=== PATIENT | male | born 1945 | race Caucasian/White ===

== ENCOUNTER 2016-09-09 05:38 | Inpatient (IN) ==
[2016-09-09] MEDS ORDERED: Levofloxacin 750 MG/150 ML 750 MG/150 ML BAG IVPB ONE (05:43)
[2016-09-09] MEDS ORDERED: Ipratropium/Albuterol Neb 3 ML IH ONE ×2 (05:45→09:39)
--- NOTE | 2016-09-09 05:47 | Emergency Department Note ---
Disposition Clinical Impression: CKD (chronic kidney disease) stage 3, GFR 30-59 ml/min, Acute exacerbation of chronic obstructive airways disease, Ischemic cardiomyopathy, Elevated troponin I level Disposition: Admitted As Inpatient Condition: Fair [facility] Care Provider[facility] - Forms: ED Satisfaction Letter SOB HPI - General Chief Complaint: ED Shortness of Breath/Dyspnea Stated Complaint: Dyspnea, diaphoretic onset this AM Time Seen by Provider: 09/09/16 05:41 Source: patient, EMS Mode of arrival: EMS Limitations: physical limitation Nursing Notes Reviewed: Yes Vital Signs Reviewed: Yes - History of Present Illness Patient was reportedly admitted to [facility] for an episode of difficulty breathing from August 28 until September 07. States he is doing relatively well until he had severe increased shortness of breath about 3 hours prior to arrival. He did do a home aerosol but he continued with severe dyspnea prompting a call to 911. On arrival they report he was with a saturation of about 70% on supplemental O2, diaphoretic and in a tripod position. They did administer labetalol, aerosol and transported expeditiously to the emergency department. On arrival here he does confirm the history of recent onset shortness of breath. Reports a cough without sputum production. He denies any chest pain or palpitations. He denies fevers, chills, abdominal or back pain. He denies any increase in his lower extremity swelling or edema. He states he has been taking his medications regularly. He is oxygen saturations on arrival were in the high 80s and he is speaking in 3-4 word sentences. Shortly after arrival he has refused BiPAP and has shown significant improvement just being semireclined on nasal cannula. His oxygen saturations quickly normalized to 97-98%. Pt Subjective Complaint: shortness of breath Onset (ago): hour(s) (3) Context: recent illness Severity: severe Consistency/Duration: gradually worsening Improves with: oxygen, bronchodilators Worsens with: lying flat, coughing Known history of: COPD, congestive heart failure, diabetes Associated symptoms: Reports: cough, wheezing, orthopnea, diaphoresis. Denies: chest pain, pain with inspiration, fever, sputum production, lower extremity pain, polyuria, polydipsia, parasthesias, palpitations, hemoptysis, nausea/ vomiting, syncope, abdominal pain, rash Treatment prior to arrival: oxygen, bronchodilator Cough present: Yes Cough Description: Voluntary, Non-Productive, Hacking Cough Frequency: Intermittent Sputum production: No Sputum Amount: None - Related Data Home oxygen amount: 3 liters Home Medications Medication Instructions Recorded Confirmed Albuterol Sulfate [Albuterol 1 - 2 puff IH Q4HR PRN #0 04/12/15 08/29/16 Inhaler] Aspirin [Lo-Dose Aspirin EC] 81 mg PO DAILY #0 04/12/15 08/29/16 BuPROPion [Wellbutrin] 100 mg PO BID #0 04/12/15 08/29/16 Cholecalciferol (D-3) [Vitamin D] 2,000 unit PO DAILY #0 04/12/15 08/29/16 Isosorbide MONOnitrate (24 HR) 45 mg PO DAILY #0 04/12/15 08/28/16 [Imdur] Lisinopril [Zestril] 5 mg PO DAILY #0 04/12/15 08/28/16 Omeprazole [PriLOSEC] 10 mg PO DAILY #0 04/12/15 08/28/16 Simethicone [Gas-X] 80 mg PO TID PRN #0 04/12/15 08/28/16 Albuterol Neb [Proventil Neb] 2.5 mg IH Q6H 06/17/16 08/29/16 Atorvastatin [Lipitor] 40 mg PO DAILY 06/17/16 08/29/16 Budesonide/Formoterol 160/4.5 2 puff IH BID 06/17/16 08/29/16 [Symbicort 160/4.5] Docusate [Colace] 100 mg PO BID 06/17/16 08/29/16 HYDROcodone/Acet 5/325 mg [[place] 1 tab PO Q8H PRN 06/17/16 08/28/16 5-325 mg] Insulin Glargine,Hum.rec.anlog 52 unit SQ HS 06/17/16 08/28/16 [Lantus Solostar] Loratadine [Allergy Relief] 10 mg PO DAILY 06/17/16 08/28/16 Metoprolol XL (24 HR) Succ [Toprol 25 mg PO DAILY 06/17/16 08/28/16 Xl] Potassium Chloride [Klor-Con 10 meq PO DAILY 06/17/16 08/28/16 Sprinkle] Roflumilast [Daliresp] 500 mcg PO DAILY 06/17/16 08/28/16 Tiotropium [Spiriva] 18 mcg IH DAILY 06/17/16 08/28/16 Insulin ASPART [NovoLOG] 22 unit SQ QAM 08/28/16 08/28/16 PredniSONE [Prednisone] 10 mg PO DAILY 09/09/16 09/09/16 Torsemide [Demadex] 20 mg PO DAILY 09/09/16 09/09/16 Warfarin [Coumadin] 4 mg PO DAILY 09/09/16 09/09/16 Previous Rx's Medication Instructions Recorded Furosemide [Lasix] 40 mg PO BID #120 tab 03/23/16 GuaiFENesin ER [Mucinex] 1,200 mg PO BID #14 tab 06/22/16 Allergies Allergy/AdvReac Type Severity Reaction Status Date / Time flunisolide [From Aerobid] Allergy unkown Verified 12/05/15 12:41 Penicillins Allergy unkown Verified 12/05/15 12:41 chlordiazepoxide AdvReac unkown Verified 12/05/15 12:41 [From Librium] diazepam [From Valium] AdvReac unknown Verified 12/05/15 12:41 simvastatin AdvReac unkown Verified 12/05/15 12:41 All systems ED: reviewed and negative except as stated. Past Medical History - Past Medical History Attestation: Yes The following information was validated with the patient. Source: patient, old records reviewed, nursing notes reviewed Medical history: Reports: aortic aneurysm, arthritis, asthma, atrial fibrillation (Anticoagulation), cardiomyopathy (Fraction 25%), CHF, COPD, coronary artery disease, diabetes, GERD, hyperlipidemia, hypertension, myocardial infarction, peripheral artery disease, renal disease, other (Anemia) Surgical history: Reports: angioplasty/stent (PTCA and cardiac stent 3 in 2014) , carotid endarterectomy, pacemaker/AICD, other Psychiatric history: Reports: PTSD - Social History Smoking Status: Former smoker Smokeless Tobacco Status: No Alcohol use: Reports: none Drug use: Reports: none, other Physical Exam - General Limitations: physical limitation, age General appearance: alert, in distress - Head Head exam: atraumatic, normocephalic, normal inspection - Eye Eye exam: Present: normal appearance, PERRL, EOMI. Absent: scleral icterus, conjunctival injection - ENT ENT exam: normal exam, normal oropharynx, mucous membranes moist - Neck Neck exam: Present: normal inspection, full ROM, trachea midline. Absent: tenderness, lymphadenopathy - Chest Chest inspection: Present: normal inspection, symmetric chest wall rise - Respiratory Respiratory exam: Present: respiratory distress, wheezes, accessory muscle use, prolonged expiratory phase - Cardiovascular Cardiovascular exam: Present: regular rate, normal rhythm, normal heart sounds, JVD. Absent: tachycardia - Abdominal Exam Abdominal exam: Present: soft, Non-Tender, normal bowel sounds. Absent: tenderness, distention, guarding, rebound, rigidity - Extremities Exam Extremities exam: Present: normal inspection, full ROM, normal capillary refill , pedal edema (1+). Absent: tenderness, calf tenderness - Expanded Lower Extremity Exam Neurovascular/Tendon exam: Present: normal capillary refill. Absent: motor deficit, sensory deficit, tendon deficit Gait: not tested/not observed - Back Exam Back exam: Present: normal inspection, full ROM. Absent: tenderness - Neurological Exam Neurological exam: Present: alert, oriented X3. Absent: motor sensory deficit - Psychiatric Psychiatric exam: Present: agitated, anxious - Skin Skin exam: Present: intact, diaphoresis, pallor. Absent: rash, cyanosis Course Course Narrative: 0640: All lab, EKG and x-ray findings were discussed with the patient and his son. The patient is feeling much better and states that he is having similar episodes of severe shortness of breath and needing to urinate when he is awakening in the mornings in the hospital. He is not sure there will be any particular benefit being in the hospital but does wish for me to talk to the [facility] to see if he might be able to be seen there and for them to see if they can further adjust his medicines. 0645: [facility] advises that did not have a monitor. Patient has no preference between the [facility] in [place] and the [facility] in [place]. We have contacted to the [facility] and are awaiting a callback from the wharfinger chief. The transfer center has noted that they in general do not accept patients was elevated troponin on the weekends due to the catheter lab was not available. They were advised that his troponin has been chronically elevated and it has been recommended by [facility] and [facility] that he does not need further cardiac testing or intervention. 0710: Patient has been declined by the [facility] by Dr. Benitez in [place]. She recommends that he be evaluated at the closest appropriate facility with cardiac care available. They states that falsely not to accept patients on the weekends with elevated troponin due to not having catheterization facilities available on the weekend. We will contact to [facility] for potential transfer. 0735: Dr. Stephens from [facility] has advised that it appears that all of his problems are related to his COPD and that they would not provide any intervention that cannot be provided this facility. He has reviewed the record and has declined accepting him to [facility]. I will contact our hospitalist, Dr. López, to see if he is agreeable to observation at this facility. 0750: Dr. López has accepted this patient in observation and we are coordinating orders to this facility. Vital Signs Temperature 98.4 F 09/09/16 05:41 Pulse Rate 82 09/09/16 05:41 Respiratory Rate 24 09/09/16 05:41 Blood Pressure 174/111 09/09/16 05:41 O2 Sat by Pulse Oximetry 95 09/09/16 05:41 Temperature 98.4 F 09/09/16 05:44 Pulse Rate 82 09/09/16 05:44 Respiratory Rate 24 09/09/16 05:44 Blood Pressure 174/111 09/09/16 05:44 O2 Sat by Pulse Oximetry 95 09/09/16 05:44 Oxygen Delivery Oxygen Delivery Nasal Cannula Shortness of Breath/Dyspnea - Differential Diagnosis Likely: acute exacerbation of chronic obstructive airways disease, congestive heart failure, pneumonia, asthma with exacerbation - Medical Records Medical records reviewed: Yes I reviewed the patient's medical records. Patient has had several hospital admissions for exacerbation of COPD as well some CHF with ischemic cardiomyopathy. It appears he has a long history of refusing to BiPAP. He does tend to have an elevated troponin on multiple investigations. - Lab Data Lab results reviewed: Yes I reviewed the patient's lab results. Result diagrams: 09/09/16 05:58 09/09/16 05:58 Lab Results 09/09/16 09/09/16 09/09/16 Range/Units 05:42 05:50 05:58 WBC 15.0 H (4.3-11.1) K/mcL RBC 3.47 L (4.19-5.50) M/mcL Hgb 9.2 L (12.9-16.9) g/dL Hct 30.4 L (37.5-50.1) % MCV 87.6 (83.0-100.0) fL MCH 26.5 L (28.0-33.3) pg MCHC 30.3 L (31.6-35.5) g/dL RDW 15.6 H (11.5-14.5) % Plt Count 364 (140-400) K/mcL MPV 9.7 (9.4-12.4) fL Immature Gran % 1.4 (0-4) % Seg Neutrophils % 76.3 % Lymphocytes % 11.9 % Monocytes % 7.5 % Eosinophils % 2.8 % Basophils % 0.1 % Neutrophils # 11.5 H (1.6-8.9) K/mcL Lymphocytes # 1.8 (0.6-4.6) K/mcL Monocytes # 1.1 (0.0-1.3) K/mcL Eosinophils # 0.4 (0.0-0.6) K/mcL Basophils # 0.0 (0.0-0.2) K/mcL ABG pH 7.36 (7.32-7.45) pH Units ABG pCO2 65 H (35-45) mmHg ABG pO2 99 (85-104) mmHg ABG HCO3 36.8 H (21-27) mEQ/L ABG Total CO2 38.8 H (20-26) mEq/L ABG O2 Saturation 97 (95-98) % ABG Base Excess 8.9 H (-2.0 to 3.0) mEq/L Sodium (136-145) mEq/L Potassium (3.5-4.5) mEq/L Chloride (98-109) mEq/L Carbon Dioxide (19-29) mEq/L BUN (8-26) mg/dL Creatinine (0.72-1.25) mg/dL Est GFR ( Amer) (> 60) Est GFR (Non-Af Amer) (> 60) BUN/Creatinine Ratio (6-26) Glucose (70-99) mg/dL POC Glucose 282 H (58-89) Calculated Osmolality (280-300) Calcium (8.6-10.8) mg/dL Troponin I (0-0.03) ng/mL B-Natriuretic Peptide (0-100) pg/mL 09/09/16 09/09/16 09/09/16 Range/Units 05:58 05:58 05:58 WBC (4.3-11.1) K/mcL RBC (4.19-5.50) M/mcL Hgb (12.9-16.9) g/dL Hct (37.5-50.1) % MCV (83.0-100.0) fL MCH (28.0-33.3) pg MCHC (31.6-35.5) g/dL RDW (11.5-14.5) % Plt Count (140-400) K/mcL MPV (9.4-12.4) fL Immature Gran % (0-4) % Seg Neutrophils % % Lymphocytes % % Monocytes % % Eosinophils % % Basophils % % Neutrophils # (1.6-8.9) K/mcL Lymphocytes # (0.6-4.6) K/mcL Monocytes # (0.0-1.3) K/mcL Eosinophils # (0.0-0.6) K/mcL Basophils # (0.0-0.2) K/mcL ABG pH (7.32-7.45) pH Units ABG pCO2 (35-45) mmHg ABG pO2 (85-104) mmHg ABG HCO3 (21-27) mEQ/L ABG Total CO2 (20-26) mEq/L ABG O2 Saturation (95-98) % ABG Base Excess (-2.0 to 3.0) mEq/L Sodium 145 (136-145) mEq/L Potassium 4.2 (3.5-4.5) mEq/L Chloride 99 (98-109) mEq/L Carbon Dioxide 34 H (19-29) mEq/L BUN 36 H (8-26) mg/dL Creatinine 1.39 H (0.72-1.25) mg/dL Est GFR ( Amer) > 60 (> 60) Est GFR (Non-Af Amer) 51 L (> 60) BUN/Creatinine Ratio 26 (6-26) Glucose 271 H (70-99) mg/dL POC Glucose (58-89) Calculated Osmolality 318 H (280-300) Calcium 8.7 (8.6-10.8) mg/dL Troponin I 0.10 H* (0-0.03) ng/mL B-Natriuretic Peptide 648 H (0-100) pg/mL - Radiology Data Radiology results reviewed: Yes I reviewed the patient's radiology results. Single view chest x-ray is performed. This demonstrates hyperexpansion consistent with COPD as well as a mildly increased interstitial markings. There appears to be some mild edema but no evidence for acute infiltrate, effusion or pneumothorax. Cardiac silhouette is borderline enlarged but unchanged from previous. This is on my interpretation. Impressions Chest X-Ray 09/09/16 05:43 IMPRESSION: 1. No significant change. D/ / Micheal Gallegos MD / Micheal Gallegos MD Interpreting Provider: Micheal Gallegos MD - EKG Data EKG attestation: Yes I reviewed and interpreted this EKG. Rate: Reports: normal (80) Rhythm: Reports: other (Ventricularly paced) Interpretation: Reports: no acute changes, other (Ventricularly paced rhythm with significant baseline artifact.) Critical Care Time Critical Care Time: Yes Total Critical Care Time: 45 Attestation: As this patient did present with signs and symptoms of potential life- threatening illness requiring my urgent intervention, total critical care time in this patient's care has been 45 minutes, not withstanding separately reportable procedures.
[2016-09-09 06:07] LABS: Basophils % 0.1 %; Eosinophils # 0.4 K/mcL (0.0-0.6); Eosinophils % 2.8 %; Hematocrit 30.4 % (37.5-50.1); Hemoglobin 9.2 g/dL (12.9-16.9); Immature Granulocytes % 1.4 % (0-4); Lymphocytes # 1.8 K/mcL (0.6-4.6); Lymphocytes % 11.9 %; Mean Corpuscular HGB Conc 30.3 g/dL (31.6-35.5); Mean Corpuscular Hemoglobin 26.5 pg (28.0-33.3); Mean Corpuscular Volume 87.6 fL (83.0-100.0); Mean Platelet Volume 9.7 fL (9.4-12.4); Monocytes # 1.1 K/mcL (0.0-1.3); Monocytes % 7.5 %; Neutrophils # 11.5 K/mcL (1.6-8.9); Platelet Count 364 K/mcL (140-400); Red Blood Count 3.47 M/mcL (4.19-5.50); Red Cell Distribution Width 15.6 % (11.5-14.5); Segmented Neutrophils % 76.3 %
[2016-09-09 06:11] LABS: ABG Base Excess 8.9 mEq/L (-2.0 to 3.0); ABG HCO3 36.8 mEQ/L (21-27); ABG Oxygen Saturation 97 % (95-98); ABG PCO2 65 mmHg (35-45); ABG PH 7.36 pH Units (7.32-7.45); ABG PO2 99 mmHg (85-104); ABG TCO2 38.8 mEq/L (20-26)
[2016-09-09 06:23] LABS: BUN/Creatinine Ratio 26 (6-26); Blood Urea Nitrogen 36 mg/dL (8-26); Calcium 8.7 mg/dL (8.6-10.8); Carbon Dioxide 34 mEq/L (19-29); Chloride 99 mEq/L (98-109); Glucose 271 mg/dL (70-99); Osmolality,Calculated 318 (280-300); Potassium 4.2 mEq/L (3.5-4.5); Sodium 145 mEq/L (136-145); eGFR For African Americans > 60 (> 60); eGFR For Non-African Americans 51 (> 60)
[2016-09-09 06:32] LABS: INR 1.4; Prothrombin Time 15.3 Seconds (9.4-12.1)
[2016-09-09 06:37] LABS: Activated Partial Thrombo Time 21.8 Seconds (26.0-36.0)
[2016-09-09] MEDS ORDERED: PredniSONE 20 MG TABLET PO SCH (10:11)
[2016-09-09] MEDS ORDERED: *HR* Dextrose 50 % in Water (Syg) 50 ML SYRINGE IVP PRN (10:11)
[2016-09-09] MEDS ORDERED: Dextrose Gel 15 GM PO PRN ×2 (10:11)
[2016-09-09] MEDS ORDERED: Torsemide 20 MG TABLET PO SCH (10:11)
[2016-09-09] MEDS ORDERED: Ipratropium/Albuterol Neb 3 ML IH SCH (10:11)
[2016-09-09] MEDS ORDERED: Ondansetron 4 MG/2 ML VIAL IVP PRN (10:11)
[2016-09-09] MEDS ORDERED: Acetaminophen 325 MG TABLET PO PRN (10:11)
[2016-09-09] MEDS ORDERED: Naloxone 0.4 MG/ML INJ IVP PRN (10:11)
[2016-09-09] MEDS ORDERED: D5% in Water 1,000 ML IV PRN (10:11)
[2016-09-09] MEDS: Insulin LISPRO 300 UNITS/3 ML VIAL SQ SCH ×2 (12:09→16:03)
--- NOTE | 2016-09-09 12:45 | Internal Med History&Physical ---
Date of Encounter: 09/09/16 Time of Encounter: 12:15 Assessment and Plan (1) Dyspnea Current visit: Yes Status: Acute Suspect due to heart failure with possible contribution from exacerbation of COPD. I will increase his isosorbide and Demadex and discontinue prednisone. I will also start Lanoxin. Further medication adjustments will be done as needed. Qualifiers: Dyspnea type: shortness of breath Qualified Code(s): R06.02 - Shortness of breath (2) Elevated troponin I level Current visit: Yes Status: Chronic Suspect he has small vessel disease with ischemic myocardium. Will increase isosorbide and continue aspirin and Toprol. (3) CKD (chronic kidney disease) stage 3, GFR 30-59 ml/min Current visit: Yes Status: Chronic Stable. Will monitor renal indices as needed. (4) Hypertension Current visit: No Status: Acute Improved since arrival in the emergency room. Continue present regimen for now Qualifiers: Hypertension type: essential hypertension Qualified Code(s): I10 - Essential (primary) hypertension (5) Anemia Current visit: No Status: Chronic We will check anemia testing in a.m. Qualifiers: Anemia type: unspecified type Qualified Code(s): D64.9 - Anemia, unspecified (6) Atrial fibrillation Current visit: No Status: Chronic Continue Coumadin. Will increase dose to 5 mg daily since he is subtherapeutic Qualifiers: Atrial fibrillation type: chronic Qualified Code(s): I48.2 - Chronic atrial fibrillation (7) CAD (coronary artery disease) Current visit: No Status: Chronic Will increase isosorbide. Continue other medications at present doses. Qualifiers: Coronary Disease-Associated Artery/Lesion type: [place] artery [place] vs. transplanted heart: apache heart Associated angina: without angina Qualified Code(s): I25.10 - Atherosclerotic heart disease of apache coronary artery without angina pectoris (8) DM type 2 (diabetes mellitus, type 2) Current visit: No Status: Chronic We will check hemoglobin A1c in a.m. Qualifiers: Diabetes mellitus complication status: with kidney complications Diabetes mellitus complication detail: with chronic kidney disease Diabetes mellitus keno terminal operator insulin use: with keno terminal operator use Chronic kidney disease stage: stage 3 (moderate) Qualified Code(s): E11.22 - Type 2 diabetes mellitus with diabetic chronic kidney disease; N18.3 - Chronic kidney disease, stage 3 ( moderate); Z79.4 - detention (current) use of insulin Internal Medicine - H&P: HPI Chief complaint: Dyspnea and chest discomfort Admitted From: Home Plans for Post Hospital Care: Home History of present illness: Mr. Martin is a 70 year old male who came to emergency room stating he was awakened approximately 4 AM with increased dyspnea and chest pain. He took albuterol nebulizer treatment with minimal improvement. He came to emergency room and was evaluated. He was [facility] floor for ongoing care needs. He reports he was hospitalized at [facility] in [place] August 28- with dyspnea felt to be due to worsening of COPD/CHF. His medications were adjusted and he felt improved discharge but awakened this morning with recurrent dyspnea. His respiratory history is significant for having smoked from age [age] up to 3 packs per day. He has a diagnosis of COPD/emphysema and wears oxygen at home 18/03. He has had negative MICHAEL workup. He follows with a medical examiner at [facility] on a regular basis. He had chest CT July 2016 which did not show acute pathology. Past Med Surg Social Fam HX - Past Medical History Medical history: aortic aneurysm, arthritis, asthma, atrial fibrillation, cardiomyopathy, CHF, COPD, coronary artery disease, diabetes, GERD, hyperlipidemia, hypertension, myocardial infarction, peripheral artery disease, renal disease, other Psychiatric history: PTSD - Past Surgical History Surgical History: angioplasty/stent, carotid endarterectomy, pacemaker/AICD, other - Social History Smoking Status: Former smoker Smokeless Tobacco Status: No Alcohol use: none Drug use: none, other - Family History Father Living Status: Hx Family Cardiac Disorders: Yes Sister Living Status: Internal Medicine - H&P: Meds Albuterol Sulfate [Albuterol Inhaler] 1 - 2 puff IH Q4HR PRN #0 04/12/15 [ History] Aspirin [Lo-Dose Aspirin EC] 81 mg PO DAILY #0 04/12/15 [History] BuPROPion [Wellbutrin] 100 mg PO BID #0 04/12/15 [History] Cholecalciferol (D-3) [Vitamin D] 2,000 unit PO DAILY #0 04/12/15 [History] Isosorbide MONOnitrate (24 HR) [Imdur] 45 mg PO DAILY #0 04/12/15 [History] Lisinopril [Zestril] 5 mg PO DAILY #0 04/12/15 [History] Omeprazole [PriLOSEC] 10 mg PO DAILY #0 04/12/15 [History] Simethicone [Gas-X] 80 mg PO TID PRN #0 04/12/15 [History] Furosemide [Lasix] 40 mg PO BID #120 tab 03/23/16 [Rx] Albuterol Neb [Proventil Neb] 2.5 mg IH Q6H 06/17/16 [History] Atorvastatin [Lipitor] 40 mg PO DAILY 06/17/16 [History] Budesonide/Formoterol 160/4.5 [Symbicort 160/4.5] 2 puff IH BID 06/17/16 [ History] Docusate [Colace] 100 mg PO BID 06/17/16 [History] HYDROcodone/Acet 5/325 mg [[place] 5-325 mg] 1 tab PO Q8H PRN 06/17/16 [History] Insulin Glargine,Hum.rec.anlog [Lantus Solostar] 52 unit SQ HS 06/17/16 [History ] Loratadine [Allergy Relief] 10 mg PO DAILY 06/17/16 [History] Metoprolol XL (24 HR) Succ [Toprol Xl] 25 mg PO DAILY 06/17/16 [History] Potassium Chloride [Klor-Con Sprinkle] 10 meq PO DAILY 06/17/16 [History] Roflumilast [Daliresp] 500 mcg PO DAILY 06/17/16 [History] Tiotropium [Spiriva] 18 mcg IH DAILY 06/17/16 [History] GuaiFENesin ER [Mucinex] 1,200 mg PO BID #14 tab 06/22/16 [Rx] Insulin ASPART [NovoLOG] 22 unit SQ QAM 08/28/16 [History] PredniSONE [Prednisone] 10 mg PO DAILY 09/09/16 [History] Torsemide [Demadex] 20 mg PO DAILY 09/09/16 [History] Warfarin [Coumadin] 4 mg PO DAILY 09/09/16 [History] Allergies flunisolide [From Aerobid] Allergy (Verified 12/05/15 12:41) unkown Penicillins Allergy (Verified 12/05/15 12:41) unkown chlordiazepoxide [From Librium] Adverse Reaction (Verified 12/05/15 12:41) unkown diazepam [From Valium] Adverse Reaction (Verified 12/05/15 12:41) unknown simvastatin Adverse Reaction (Verified 12/05/15 12:41) unkown All Systems PM: A 10-system review of systems was performed and is negative for pertinent findings except as documented above in the HPI. Review of systems: Review of systems from the April 2016 [facility] hospitalization were reviewed and revised as below. Gen.: His weight has decreased from 89.414 kg at April 2016 discharge to 87.543 kg on admission today Cardiovascular: He has history of hypertension and chronic atrial fibrillation. He has heart failure with LVEF 25% on echocardiogram December 2014. He had ICD pacemaker placed on 3 occasions, most recently in 2011. He claims he had MIs in 2003 and April 2015. He had 3 stents placed in April 2015 at [facility] which was his most recent heart cath. He denies DVT or pulmonary emboli. Respiratory: As per history of present illness GI: He has GERD. He has had EGD and colonoscopy in the past 2 years which were unremarkable. Denies disorders of his liver or exocrine pancreas. : He has CKD stage III. He does not follow with a roll cutting operator but states he is scheduled to see one. He denies other kidney or bladder disorders. Neurologic: He denies large distribution strokes or seizures. Endocrine: He was diagnosed with DM 2 approximately 1994. He has hyperlipidemia but denies thyroid disease Hematology/oncology: He had anemia with folate and iron deficiency documented in the past. He denies internal malignancies. Psychiatric: He has PTSD. He denies other mental health issues Musk skeletal: He has DJD but no known gout or osteoporosis. - Constitutional Vitals: Temp Pulse Resp BP Pulse Ox 97.6 F 77 28 116/54 94 L 09/09/16 11:13 09/09/16 11:13 09/09/16 11:13 09/09/16 11:13 09/09/16 11:13 Exam: Gen.: He is a well-developed well-nourished male who appears in no severe distress at present time HEENT: Head is atraumatic and normocephalic. Eyes: EOMI. There is no scleral icterus. Mouth: Mucosa is moist. Neck: Supple and nontender. There is no thyromegaly or adenopathy noted. Heart: Regular without murmurs gallops or ectopics. A pacemaker/defibrillator is in place in the left upper chest area. Lungs: No wheezes or crackles are heard. Abdomen: Soft and nontender. No masses or guarding are noted. Extremities: There is no cyanosis noted. There is 1-2+ edema of the dorsum of the feet and lower anterior shins bilaterally. Neurologic: Mental status: He is talkative and a good historian. Cranial nerves : Smile is symmetric. Forehead wrinkles bilaterally. Tongue protrudes midline. EOMI. Motor: There is no pronator drift. Cerebellar: finger to nose is intact bilaterally. Skin: Warm and dry. He has widespread ecchymosis of varying stages Internal Med - H&P Results - Labs CBC & Chem 7: 09/09/16 05:58 09/09/16 05:58 Labs: Cardiac Enzymes 09/09/16 Range/Units 10:33 Troponin I 0.13 H* (0-0.03) ng/mL
[2016-09-09] MEDS: Isosorbide MONOnitrate (24 HR) 60 MG TAB.ER.24H PO SCH (14:14)
[2016-09-09] MEDS: *HR* Digoxin 0.25 MG TABLET PO SCH (14:14)
[2016-09-09] MEDS: Albuterol 2.5 MG/3 ML NEBULIZER IH PRN ×2 (15:46→21:36)
[2016-09-09] MEDS: *HR* Warfarin 5 MG TABLET PO SCH (17:36)
[2016-09-09] MEDS ORDERED: *HR* Warfarin 2 MG TABLET PO SCH (18:00)
[2016-09-09] MEDS: *HR* HYDROcodone/Acet 5/325 mg TABLET PO PRN (21:23)
[2016-09-10] MEDS: Albuterol 2.5 MG/3 ML NEBULIZER IH PRN ×5 (00:46→21:16)
[2016-09-10 06:11] LABS: Basophils % 0.2 %; Eosinophils % 0.2 %; Hematocrit 25.5 % (37.5-50.1); Hemoglobin 8.1 g/dL (12.9-16.9); Immature Granulocytes % 0.9 % (0-4); Lymphocytes # 1.7 K/mcL (0.6-4.6); Lymphocytes % 12.9 %; Mean Corpuscular HGB Conc 31.8 g/dL (31.6-35.5); Mean Corpuscular Hemoglobin 27.2 pg (28.0-33.3); Mean Corpuscular Volume 85.6 fL (83.0-100.0); Mean Platelet Volume 10.2 fL (9.4-12.4); Monocytes # 1.3 K/mcL (0.0-1.3); Monocytes % 9.9 %; Neutrophils # 9.7 K/mcL (1.6-8.9); Platelet Count 299 K/mcL (140-400); Red Blood Count 2.98 M/mcL (4.19-5.50); Red Cell Distribution Width 15.8 % (11.5-14.5); Segmented Neutrophils % 75.9 %
[2016-09-10 06:43] LABS: Alanine Aminotransferase 81 Units/L (0-55); Albumin 2.7 g/dL (3.5-5.0); Albumin/Globulin Ratio 1.4 (1.1-2.2); Alkaline Phosphatase 95 Units/L (38-126); Aspartate Amino Transferase 50 Units/L (5-34); BUN/Creatinine Ratio 27 (6-26); Bilirubin,Total 0.5 mg/dL (0.2-1.2); Blood Urea Nitrogen 37 mg/dL (8-26); Calcium 8.7 mg/dL (8.6-10.8); Carbon Dioxide 36 mEq/L (19-29); Chloride 98 mEq/L (98-109); Globulin 1.9 g/dL (2.4-3.5); Glucose 169 mg/dL (70-99); Magnesium 2.1 mg/dL (1.6-2.6); Osmolality,Calculated 307 (280-300); Potassium 4.2 mEq/L (3.5-4.5); Sodium 142 mEq/L (136-145); Total Protein 4.6 g/dL (6.0-8.3); eGFR For African Americans > 60 (> 60); eGFR For Non-African Americans 51 (> 60)
[2016-09-10] MEDS: Tiotropium 18 MCG inhalation IH SCH (08:06)
[2016-09-10] MEDS: Insulin LISPRO 300 UNITS/3 ML VIAL SQ SCH ×3 (08:56→16:56)
[2016-09-10] MEDS: *HR* Digoxin 0.25 MG TABLET PO SCH (09:09)
[2016-09-10] MEDS: *HR* HYDROcodone/Acet 5/325 mg TABLET PO PRN ×2 (09:10→16:52)
[2016-09-10] MEDS: Torsemide 20 MG TABLET PO SCH (09:10)
[2016-09-10] MEDS: Isosorbide MONOnitrate (24 HR) 60 MG TAB.ER.24H PO SCH (09:10)
--- NOTE | 2016-09-10 09:56 | Electrocardiograph Report ---
[facility] Test Date: 2016-09-09 Pat Name: Sean Martin Department: [id number] Room: [facility] Gender: M Assistant Child Care Teacher: [id number] : 1945 Requested By: Krishna Humphries Order Number: [id number] Reading MD: Tiburcio Marrero MD Measurements Intervals [place] Rate: 80 P: MA: 0 QRS: 103 QRSD: 163 T: 171 QT: 384 QTc: 420 Interpretive Statements ELECTRONIC VENTRICULAR PACEMAKER BASELINE ARTIFACT Electronically Signed On 09-10-16 09:55:48 EST by Tiburcio Marrero MD
--- NOTE | 2016-09-10 10:43 | Internal Med Progress Note ---
Date of Encounter: 09/10/16 Time of Encounter: 10:35 - Assessment and plan (1) Dyspnea Current Visit: Yes Status: Acute Assessment and plan: September 10. Continue present management. Recheck labs in a.m. Qualifiers: Dyspnea type: shortness of breath Qualified Code(s): R06.02 - Shortness of breath (2) Elevated troponin I level Current Visit: Yes Status: Chronic Assessment and plan: September 10. Continue present management. Anticipate discharge home tomorrow (3) CKD (chronic kidney disease) stage 3, GFR 30-59 ml/min Current Visit: Yes Status: Chronic Assessment and plan: September 10. Stable (4) Hypertension Current Visit: No Status: Acute Assessment and plan: September 10. Continue present regimen Qualifiers: Hypertension type: essential hypertension Qualified Code(s): I10 - Essential (primary) hypertension (5) Anemia Current Visit: No Status: Chronic Assessment and plan: September 10. Anemia testing is pending. I note hemoglobin decreased to 8.1 Qualifiers: Anemia type: unspecified type Qualified Code(s): D64.9 - Anemia, unspecified (6) Atrial fibrillation Current Visit: No Status: Chronic Assessment and plan: September 10. Continue Coumadin Qualifiers: Atrial fibrillation type: chronic Qualified Code(s): I48.2 - Chronic atrial fibrillation (7) CAD (coronary artery disease) Current Visit: No Status: Chronic Assessment and plan: September 10. Continue present regimen Qualifiers: Coronary Disease-Associated Artery/Lesion type: [place] artery [place] vs. transplanted heart: [place] heart Associated angina: without angina Qualified Code(s): I25.10 - Atherosclerotic heart disease of [place] coronary artery without angina pectoris (8) DM type 2 (diabetes mellitus, type 2) Current Visit: No Status: Chronic Assessment and plan: September 10. Will start Lantus/Levemir at lower dose. Continue Accu-Cheks with SSI. Qualifiers: Diabetes mellitus complication status: with kidney complications Diabetes mellitus complication detail: with chronic kidney disease Diabetes mellitus terminal carman insulin use: with terminal carman use Chronic kidney disease stage: stage 3 (moderate) Qualified Code(s): E11.22 - Type 2 diabetes mellitus with diabetic chronic kidney disease; N18.3 - Chronic kidney disease, stage 3 ( moderate); Z79.4 - long term care phlebotomist (current) use of insulin - Subjective Interval history: September 10. He has no new complaints and feels his breathing has improved. - Constitutional Vitals: Temp Pulse Resp BP Pulse Ox 97.7 F 83 20 148/65 95 09/10/16 06:40 09/10/16 06:40 09/10/16 08:03 09/10/16 06:40 09/10/16 08:03 Exam: He is sitting on the side of bed and appears mildly dyspneic. He is wearing oxygen. His heart is regular (pacer). Lungs show prolonged expiration phase with mild wheezing and a few rhonchi. Extremities show slight improvement in edema. I reviewed his medications and lab results. Internal Medicine: Result - Labs CBC & Chem 7: 09/10/16 05:33 09/10/16 05:33 Labs: Short CBC 09/10/16 Range/Units 05:33 WBC 12.8 H (4.3-11.1) K/mcL Hgb 8.1 L (12.9-16.9) g/dL Hct 25.5 L (37.5-50.1) % Plt Count 299 (140-400) K/mcL Neutrophils # 9.7 H (1.6-8.9) K/mcL BMP 09/10/16 05:33 Sodium 142 Potassium 4.2 Chloride 98 Carbon Dioxide 36 H BUN 37 H Creatinine 1.39 H Glucose 169 H Calcium 8.7 Cardiac Enzymes 09/09/16 09/09/16 09/09/16 Range/Units 10:33 16:07 22:03 Troponin I 0.13 H* 0.15 H* 0.14 H* (0-0.03) ng/mL Liver Function 09/10/16 Range/Units 05:33 Total Bilirubin 0.5 (0.2-1.2) mg/dL AST 50 H (5-34) Units/L ALT 81 H (0-55) Units/L Alkaline Phosphatase 95 (38-126) Units/L Albumin 2.7 L (3.5-5.0) g/dL - ABG Interpretation ABG results: ABG ABG pH 7.36 pH Units (7.32-7.45) 09/09/16 05:50 ABG pCO2 65 mmHg (35-45) H 09/09/16 05:50 ABG pO2 99 mmHg (85-104) 09/09/16 05:50 ABG O2 Saturation 97 % (95-98) 09/09/16 05:50 PT/INR, D-dimer PT 15.3 Seconds (9.4-12.1) H 09/09/16 05:58 - VTE Documentation of Mechanical Device: Graduated compression elastic hosiery Consult Discharge Plan - Plan [facility]: [facility]Primary Care Provider[facility] - 1 week
[2016-09-10 11:40] LABS: % Iron Saturation 17 % (20-55); Iron 46 mcg/dL (65-175); Transferrin 193 mg/dL (174-364)
[2016-09-10 11:52] LABS: Ferritin 76 ng/ml (22-275)
[2016-09-10 12:05] LABS: Folate 7.2 ng/mL (7.0-31.4)
[2016-09-10] MEDS: *HR* Warfarin 5 MG TABLET PO SCH (18:01)
[2016-09-10] MEDS ORDERED: Insulin DETEMIR 100 UNIT/ML X5UNITS SQ SCH (21:00)
[2016-09-11] MEDS: Albuterol 2.5 MG/3 ML NEBULIZER IH PRN ×6 (00:37→21:41)
[2016-09-11] MEDS: *HR* HYDROcodone/Acet 5/325 mg TABLET PO PRN ×4 (02:28→21:39)
[2016-09-11] MEDS ORDERED: Levofloxacin 750 MG/150 ML 750 MG/150 ML BAG IVPB SCH (06:00)
[2016-09-11 06:13] LABS: Basophils % 0.2 %; Eosinophils # 0.4 K/mcL (0.0-0.6); Eosinophils % 2.6 %; Hematocrit 27.9 % (37.5-50.1); Hemoglobin 8.7 g/dL (12.9-16.9); Immature Granulocytes % 0.7 % (0-4); Lymphocytes # 2.1 K/mcL (0.6-4.6); Lymphocytes % 14.5 %; Mean Corpuscular HGB Conc 31.2 g/dL (31.6-35.5); Mean Corpuscular Hemoglobin 27.1 pg (28.0-33.3); Mean Corpuscular Volume 86.9 fL (83.0-100.0); Mean Platelet Volume 9.9 fL (9.4-12.4); Monocytes # 1.2 K/mcL (0.0-1.3); Monocytes % 8.2 %; Platelet Count 306 K/mcL (140-400); Red Blood Count 3.21 M/mcL (4.19-5.50); Red Cell Distribution Width 15.7 % (11.5-14.5); Segmented Neutrophils % 73.8 %
[2016-09-11 06:20] LABS: Neutrophils # 10.6 K/mcL (1.6-8.9)
[2016-09-11 06:37] LABS: Alanine Aminotransferase 58 Units/L (0-55); Albumin 2.7 g/dL (3.5-5.0); Albumin/Globulin Ratio 1.1 (1.1-2.2); Alkaline Phosphatase 87 Units/L (38-126); Aspartate Amino Transferase 27 Units/L (5-34); BUN/Creatinine Ratio 28 (6-26); Bilirubin,Total 0.6 mg/dL (0.2-1.2); Blood Urea Nitrogen 35 mg/dL (8-26); Calcium 8.8 mg/dL (8.6-10.8); Carbon Dioxide 38 mEq/L (19-29); Chloride 99 mEq/L (98-109); Globulin 2.5 g/dL (2.4-3.5); Glucose 43 mg/dL (70-99); Osmolality,Calculated 305 (280-300); Potassium 3.7 mEq/L (3.5-4.5); Sodium 145 mEq/L (136-145); Total Protein 5.2 g/dL (6.0-8.3); eGFR For African Americans > 60 (> 60); eGFR For Non-African Americans 57 (> 60)
[2016-09-11 06:43] LABS: Digoxin < 0.3 ng/mL (0.8-2.0)
[2016-09-11] MEDS: Tiotropium 18 MCG inhalation IH SCH (08:12)
[2016-09-11 08:51] LABS: Hemoglobin A1C 7.3 %
[2016-09-11] MEDS: Torsemide 20 MG TABLET PO SCH (08:56)
[2016-09-11] MEDS: *HR* Digoxin 0.25 MG TABLET PO SCH (08:56)
[2016-09-11] MEDS: Isosorbide MONOnitrate (24 HR) 60 MG TAB.ER.24H PO SCH (08:56)
[2016-09-11] MEDS: Insulin LISPRO 300 UNITS/3 ML VIAL SQ SCH ×3 (08:56→16:54)
[2016-09-11] MEDS ORDERED: Furosemide 40 MG/4 ML VIAL IVP ONE (11:03)
[2016-09-11] MEDS ORDERED: *HR* Morphine 2 MG/ML SYRINGE IVP ONE (11:04)
--- NOTE | 2016-09-11 11:12 | Internal Med Progress Note ---
Date of Encounter: 09/11/16 Time of Encounter: 10:55 - Assessment and plan (1) Dyspnea Current Visit: Yes Status: Acute Assessment and plan: September 10. Continue present management. Recheck labs in a.m. September 11. Will increase Demadex dose and give IV Lasix now. Restart lisinopril. Continue Lanoxin and isosorbide at present doses. Recheck labs in a.m. Qualifiers: Dyspnea type: shortness of breath Qualified Code(s): R06.02 - Shortness of breath (2) Elevated troponin I level Current Visit: Yes Status: Chronic Assessment and plan: September 10. Continue present management. Anticipate discharge home tomorrow (3) CKD (chronic kidney disease) stage 3, GFR 30-59 ml/min Current Visit: Yes Status: Chronic Assessment and plan: September 10. Stable September 11. Slightly improved. (4) Hypertension Current Visit: No Status: Acute Assessment and plan: September 10. Continue present regimen Qualifiers: Hypertension type: essential hypertension Qualified Code(s): I10 - Essential (primary) hypertension (5) Anemia Current Visit: No Status: Chronic Assessment and plan: September 10. Anemia testing is pending. I note hemoglobin decreased to 8.1 September 11. Anemia testing showed iron 46 with transferrin saturation 17% and ferritin 76. B12 and folate were unremarkable. Qualifiers: Anemia type: unspecified type Qualified Code(s): D64.9 - Anemia, unspecified (6) Atrial fibrillation Current Visit: No Status: Chronic Assessment and plan: September 10. Continue Coumadin Qualifiers: Atrial fibrillation type: chronic Qualified Code(s): I48.2 - Chronic atrial fibrillation (7) CAD (coronary artery disease) Current Visit: No Status: Chronic Assessment and plan: September 10. Continue present regimen Qualifiers: Coronary Disease-Associated Artery/Lesion type: [place] artery [place] vs. transplanted heart: [place] heart Associated angina: without angina Qualified Code(s): I25.10 - Atherosclerotic heart disease of [place] coronary artery without angina pectoris (8) DM type 2 (diabetes mellitus, type 2) Current Visit: No Status: Chronic Assessment and plan: September 10. Will start Lantus/Levemir at lower dose. Continue Accu-Cheks with SSI. September 11. Hemoglobin A1c was 7.3%. Will increase Levemir and continue Accu- Cheks with SSI. Qualifiers: Diabetes mellitus complication status: with kidney complications Diabetes mellitus complication detail: with chronic kidney disease Diabetes mellitus fdc insulin use: with fdc use Chronic kidney disease stage: stage 3 (moderate) Qualified Code(s): E11.22 - Type 2 diabetes mellitus with diabetic chronic kidney disease; N18.3 - Chronic kidney disease, stage 3 ( moderate); Z79.4 - moth exterminator (current) use of insulin - Subjective Interval history: September 10. He has no new complaints and feels his breathing has improved. September 11. He has no new complaints and he does not feel he has improved significantly since yesterday. - Constitutional Vitals: Temp Pulse Resp BP Pulse Ox 98.2 F 88 18 118/46 97 09/11/16 10:24 09/11/16 10:24 09/11/16 10:24 09/11/16 10:24 09/11/16 10:24 Exam: He is sitting on the side of bed and appears minimally dyspneic. His lungs show no inspiratory crackles. Heart is regular (pacer). Extremities show 1-2+ edema. Reviewed his medications and lab results. Internal Medicine: Result - Labs CBC & Chem 7: 09/11/16 05:33 09/11/16 05:33 Labs: Short CBC 09/11/16 Range/Units 05:33 WBC 14.3 H (4.3-11.1) K/mcL Hgb 8.7 L (12.9-16.9) g/dL Hct 27.9 L (37.5-50.1) % Plt Count 306 (140-400) K/mcL Neutrophils # 10.6 H (1.6-8.9) K/mcL BMP 09/10/16 09/11/16 05:33 05:33 Sodium 142 145 Potassium 4.2 3.7 Chloride 98 99 Carbon Dioxide 36 H 38 H BUN 37 H 35 H Creatinine 1.39 H 1.25 Glucose 169 H 43 L Calcium 8.7 8.8 Liver Function 09/10/16 09/11/16 Range/Units 05:33 05:33 Total Bilirubin 0.5 0.6 (0.2-1.2) mg/dL AST 50 H 27 (5-34) Units/L ALT 81 H 58 H (0-55) Units/L Alkaline Phosphatase 95 87 (38-126) Units/L Albumin 2.7 L 2.7 L (3.5-5.0) g/dL - ABG Interpretation ABG results: ABG ABG pH 7.36 pH Units (7.32-7.45) 09/09/16 05:50 ABG pCO2 65 mmHg (35-45) H 09/09/16 05:50 ABG pO2 99 mmHg (85-104) 09/09/16 05:50 ABG O2 Saturation 97 % (95-98) 09/09/16 05:50 PT/INR, D-dimer PT 15.3 Seconds (9.4-12.1) H 09/09/16 05:58 - VTE Documentation of Mechanical Device: Graduated compression elastic hosiery Consult Discharge Plan - Plan [facility]errals: [facility] [Primary Care Provider] - 1 week
[2016-09-11] MEDS ORDERED: Torsemide 20 MG TABLET PO SCH (11:16)
[2016-09-11] MEDS: *HR* Warfarin 5 MG TABLET PO SCH (18:27)
[2016-09-11] MEDS ORDERED: Insulin DETEMIR 100 UNIT/ML X5UNITS SQ SCH (21:00)
[2016-09-12] MEDS: Albuterol 2.5 MG/3 ML NEBULIZER IH PRN ×2 (04:36→09:47)
[2016-09-12] MEDS: *HR* HYDROcodone/Acet 5/325 mg TABLET PO PRN (04:44)
[2016-09-12 05:38] LABS: Basophils % 0.2 %; Eosinophils # 0.2 K/mcL (0.0-0.6); Eosinophils % 1.9 %; Immature Granulocytes % 0.5 % (0-4); Lymphocytes # 1.2 K/mcL (0.6-4.6); Lymphocytes % 10.7 %; Mean Corpuscular Volume 87.1 fL (83.0-100.0); Mean Platelet Volume 10.2 fL (9.4-12.4); Monocytes # 0.6 K/mcL (0.0-1.3); Monocytes % 5.7 %; Neutrophils # 8.9 K/mcL (1.6-8.9); Platelet Count 274 K/mcL (140-400); Red Blood Count 3.33 M/mcL (4.19-5.50); Red Cell Distribution Width 15.5 % (11.5-14.5)
[2016-09-12 05:46] LABS: INR 1.6; Prothrombin Time 17.8 Seconds (9.4-12.1)
[2016-09-12 05:54] LABS: BUN/Creatinine Ratio 25 (6-26); Blood Urea Nitrogen 28 mg/dL (8-26); Carbon Dioxide 34 mEq/L (19-29); Chloride 98 mEq/L (98-109); Glucose 119 mg/dL (70-99); Osmolality,Calculated 303 (280-300); Potassium 3.9 mEq/L (3.5-4.5); Sodium 143 mEq/L (136-145); eGFR For African Americans > 60 (> 60); eGFR For Non-African Americans > 60 (> 60)
[2016-09-12 07:01] VITALS: BP 150/74
[2016-09-12] MEDS: Insulin LISPRO 300 UNITS/3 ML VIAL SQ SCH (07:38)
[2016-09-12] MEDS: Isosorbide MONOnitrate (24 HR) 60 MG TAB.ER.24H PO SCH (07:52)
[2016-09-12] MEDS ORDERED: Levofloxacin 750 MG/150 ML 750 MG/150 ML BAG IVPB SCH (09:00)
--- NOTE | 2016-09-12 09:50 | Discharge Summary ---
Date of Encounter: 09/12/16 Time of Encounter: 09:25 - Discharge Diagnosis (1) Systolic heart failure Priority: Primary Status: Chronic Qualifiers: Heart failure chronicity: acute on chronic Qualified Code(s): I50.23 - Acute on chronic systolic (congestive) heart failure (2) Dyspnea Priority: Secondary Status: Acute Qualifiers: Dyspnea type: shortness of breath Qualified Code(s): R06.02 - Shortness of breath (3) Elevated troponin I level Priority: Secondary Status: Chronic (4) CKD (chronic kidney disease) stage 3, GFR 30-59 ml/min Priority: Secondary Status: Chronic (5) Hypertension Priority: Secondary Status: Acute Qualifiers: Hypertension type: essential hypertension Qualified Code(s): I10 - Essential (primary) hypertension (6) Anemia Priority: Secondary Status: Chronic Qualifiers: Anemia type: unspecified type Qualified Code(s): D64.9 - Anemia, unspecified (7) Atrial fibrillation Priority: Secondary Status: Chronic Qualifiers: Atrial fibrillation type: chronic Qualified Code(s): I48.2 - Chronic atrial fibrillation (8) CAD (coronary artery disease) Priority: Secondary Status: Chronic Qualifiers: Coronary Disease-Associated Artery/Lesion type: [place] artery [place] vs. transplanted heart: [place] heart Associated angina: without angina Qualified Code(s): I25.10 - Atherosclerotic heart disease of [place] coronary artery without angina pectoris (9) DM type 2 (diabetes mellitus, type 2) Priority: Secondary Status: Chronic Qualifiers: Diabetes mellitus complication status: with kidney complications Diabetes mellitus complication detail: with chronic kidney disease Diabetes mellitus terminal operations supervisor insulin use: with terminal operations supervisor use Chronic kidney disease stage: stage 3 (moderate) Qualified Code(s): E11.22 - Type 2 diabetes mellitus with diabetic chronic kidney disease; N18.3 - Chronic kidney disease, stage 3 ( moderate); Z79.4 - [facility] (current) use of insulin - Discharge Medications Prescriptions: Digoxin [Lanoxin] 0.25 mg PO DAILY #30 tablet Isosorbide MONOnitrate (24 HR) [Imdur] 120 mg PO DAILY #60 tab.er.24h Lactobacillus [Culturelle] 1 each PO BID #6 cap.sprink Levofloxacin [Levaquin] 750 mg PO DAILY #3 tablet Torsemide [Demadex] 80 mg PO DAILY #120 tablet Warfarin [Coumadin] 5 mg PO 1800 #30 tablet Home Medications: Albuterol Sulfate [Albuterol Inhaler] 1 - 2 puff IH Q4HR PRN #0 04/12/15 [ History] Aspirin [Lo-Dose Aspirin EC] 81 mg PO DAILY #0 04/12/15 [History] BuPROPion [Wellbutrin] 100 mg PO BID #0 04/12/15 [History] Cholecalciferol (D-3) [Vitamin D] 2,000 unit PO DAILY #0 04/12/15 [History] Lisinopril [Zestril] 5 mg PO DAILY #0 04/12/15 [History] Simethicone [Gas-X] 80 mg PO TID PRN #0 04/12/15 [History] Atorvastatin [Lipitor] 40 mg PO DAILY 06/17/16 [History] Budesonide/Formoterol 160/4.5 [Symbicort 160/4.5] 2 puff IH BID 06/17/16 [ History] Docusate [Colace] 100 mg PO BID 06/17/16 [History] HYDROcodone/Acet 5/325 mg [[place] 5-325 mg] 1 tab PO Q8H PRN 06/17/16 [History] Insulin Glargine,Hum.rec.anlog [Lantus Solostar] 52 unit SQ HS 06/17/16 [History ] Metoprolol XL (24 HR) Succ [Toprol Xl] 25 mg PO DAILY 06/17/16 [History] Potassium Chloride [Klor-Con Sprinkle] 10 meq PO DAILY 06/17/16 [History] Roflumilast [Daliresp] 500 mcg PO DAILY 06/17/16 [History] Tiotropium [Spiriva] 18 mcg IH DAILY 06/17/16 [History] GuaiFENesin ER [Mucinex] 1,200 mg PO BID #14 tab 06/22/16 [Rx] Insulin ASPART [NovoLOG] 22 unit SQ QAM 08/28/16 [History] Albuterol Neb [Proventil Neb] 2.5 mg IH Q4H PRN 365 Days 09/12/16 [Rx] Digoxin [Lanoxin] 0.25 mg PO DAILY #30 tablet 09/12/16 [Rx] Isosorbide MONOnitrate (24 HR) [Imdur] 120 mg PO DAILY #60 tab.er.24h 09/12/16 [ Rx] Lactobacillus [Culturelle] 1 each PO BID #6 cap.sprink 09/12/16 [Rx] Levofloxacin [Levaquin] 750 mg PO DAILY #3 tablet 09/12/16 [Rx] Omeprazole [PriLOSEC] 10 mg PO DAILY PRN #0 09/12/16 [Rx] Torsemide [Demadex] 80 mg PO DAILY #120 tablet 09/12/16 [Rx] Warfarin [Coumadin] 5 mg PO 1800 #30 tablet 09/12/16 [Rx] Allergies/Adverse Reactions: Allergies flunisolide [From Aerobid] Allergy (Verified 12/05/15 12:41) unkown Penicillins Allergy (Verified 12/05/15 12:41) unkown chlordiazepoxide [From Librium] Adverse Reaction (Verified 12/05/15 12:41) unkown diazepam [From Valium] Adverse Reaction (Verified 12/05/15 12:41) unknown simvastatin Adverse Reaction (Verified 12/05/15 12:41) unkown Date of admission: 09/11/16 13:38 [facility] - Patient Status Disposition: Home, Self-Care Condition: Fair Overall status at discharge: patient is progressing back to baseline - Discharge Instructions Follow Up With: [facility] [Primary Care Provider[facility] - 1 week - Diet and Activity Activity: resume usual activities as tolerated, wear oxygen at all times Diet: advance to your usual diet Hospital course: Mr. Matrin is a 70 year old male who came to emergency room stating he was awakened approximately 4 AM with increased dyspnea and chest pain. He took albuterol nebulizer treatment with minimal improvement. He came to emergency room and was evaluated. He was admitted to [facility] floor for ongoing care needs. Initial orders were written by the emergency room physician. I saw him on September 09 and performed a history and physical. I felt his dyspnea was due to heart failure and exacerbation of COPD. He was started on Levaquin for possible infection. I increased his isosorbide to 120 mg daily. His Demadex dose was eventually increased to 80 mg daily. Prednisone was discontinued. He was started on Lanoxin. He had significant improvement in his dyspnea over the course of hospitalization. His blood pressure remained stable. His azotemia improved with creatinine decreasing to 1.13 on the day of discharge with estimated GFR greater than 60. Anemia testing was done and showed iron 46, transferrin saturation 70%, ferritin 76, and transferrin 193, B12 502 and folate 7.2. His INR was subtherapeutic so Coumadin was increased to 5 mg daily. He [facility]R [facility]. On September 12 I felt he was stable for discharge home. [facility]. - Time Spent with Patient Total time spent providing and/or coordinating discharge services: - Constitutional Vitals: Temp Pulse Resp BP Pulse Ox 98.4 F 76 18 150/74 94 L 09/12/16 06:57 09/12/16 06:57 09/12/16 06:57 09/12/16 06:57 09/12/16 06:57 - VTE Documentation of Mechanical Device: Graduated compression elastic hosiery
[2016-09-12] MEDS: Tiotropium 18 MCG inhalation IH SCH (10:01)
== END 2016-09-12 11:24 | disposition home or self-care (01) | DRG 291 ==
LOC: EMEROOPIK 05:38 → INPPIK 05:38
PROVIDERS: ADMIT Internal Medicine; ATTEND Internal Medicine

== ENCOUNTER 2016-10-25 09:24 | Observation (INO) ==
--- NOTE | 2016-10-25 09:29 | Emergency Department Note ---
Disposition Clinical Impression: Congestive heart failure Qualifiers: Congestive heart failure type: unspecified congestive heart failure type Congestive heart failure chronicity: acute on chronic Qualified Code(s): I50.9 - Heart failure, unspecified COPD (chronic obstructive pulmonary disease) Qualifiers: COPD type: COPD with acute exacerbation Qualified Code(s): J44.1 - Chronic obstructive pulmonary disease with (acute) exacerbation Disposition: Admitted As Inpatient Condition: Fair SOB HPI - General Chief Complaint: ED Shortness of Breath/Dyspnea Stated Complaint: Shortness of breath Time Seen by Provider: 10/25/16 09:25 Source: patient, EMS Mode of arrival: EMS Limitations: no limitations Nursing Notes Reviewed: Yes Vital Signs Reviewed: Yes - History of Present Illness Patient presents to the ED complaining of shortness of breath. States he is always slightly short of breath but it got worse this morning when he woke up. He has had a productive cough with yellow sputum. Denies any sore throat, sneezing and rhinorrhea. He has had some loose stools but no abdominal pain, nausea or vomiting. No fever or chills. He used albuterol approximately 20 minutes prior to arrival and had some relief. No chest pain. He was last admitted in mid August for a COPD exacerbation. Has not been on any antibiotics or steroids since that time. Has a history of COPD and wears 2 L of oxygen at home for over 3 years. He also has a history of NM, CHF with ICD and pacemaker. His just got out of the hospital with a COPD exacerbation herself. No recent travel. He is usually a patient at the [facility]. - Related Data Home Medications Medication Instructions Recorded Confirmed Albuterol Sulfate [Albuterol 1 - 2 puff IH Q4HR PRN #0 04/12/15 10/25/16 Inhaler] Aspirin [Lo-Dose Aspirin EC] 81 mg PO DAILY #0 04/12/15 10/25/16 BuPROPion [Wellbutrin] 100 mg PO BID #0 04/12/15 10/25/16 Cholecalciferol (D-3) [Vitamin D] 2,000 unit PO DAILY #0 04/12/15 10/25/16 Lisinopril [Zestril] 10 mg PO DAILY #0 04/12/15 10/25/16 Simethicone [Gas-X] 80 mg PO TID PRN #0 04/12/15 10/25/16 Atorvastatin [Lipitor] 40 mg PO DAILY 06/17/16 10/25/16 Budesonide/Formoterol 160/4.5 2 puff IH BID 06/17/16 10/25/16 [Symbicort 160/4.5] Docusate [Colace] 100 mg PO BID 06/17/16 10/25/16 HYDROcodone/Acet 5/325 mg [[place] 1 tab PO Q8H PRN 06/17/16 10/25/16 5-325 mg] Insulin Glargine,Hum.rec.anlog 48 unit SQ HS 06/17/16 10/25/16 [Lantus Solostar] Metoprolol XL (24 HR) Succ [Toprol 25 mg PO DAILY 06/17/16 10/25/16 Xl] Potassium Chloride [Klor-Con 10 meq PO DAILY 06/17/16 10/25/16 Sprinkle] Roflumilast [Daliresp] 500 mcg PO DAILY 06/17/16 10/25/16 Tiotropium [Spiriva] 18 mcg IH DAILY 06/17/16 10/25/16 Insulin ASPART [NovoLOG] 22 unit SQ QAM 08/28/16 10/25/16 Dextrose [Glucose] 16 gm PO QAM PRN 10/25/16 10/25/16 Ferrous Fumarate [Ferrocite] 324 mg PO BID 10/25/16 10/25/16 Furosemide [Lasix] 40 mg PO BID 10/25/16 10/25/16 Isosorbide MONOnitrate (24 HR) 30 mg PO DAILY 10/25/16 10/25/16 [Imdur] Loratadine [Claritin] 10 mg PO QAM 10/25/16 10/25/16 Nitroglycerin [Nitrostat] 0.4 mg SL Q5-6MIN PRN 10/25/16 10/25/16 Omeprazole [PriLOSEC] 20 mg PO DAILY PRN 10/25/16 10/25/16 Previous Rx's Medication Instructions Recorded GuaiFENesin ER [Mucinex] 1,200 mg PO BID #14 tab 06/22/16 Albuterol Neb [Proventil Neb] 2.5 mg IH Q4H PRN 365 Days 09/12/16 Allergies Allergy/AdvReac Type Severity Reaction Status Date / Time flunisolide [From Aerobid] Allergy unkown Verified 12/05/15 12:41 Penicillins Allergy unkown Verified 12/05/15 12:41 chlordiazepoxide AdvReac unkown Verified 12/05/15 12:41 [From Librium] diazepam [From Valium] AdvReac unknown Verified 12/05/15 12:41 simvastatin AdvReac unkown Verified 12/05/15 12:41 Constitutional: Denies: fever, chills, weakness, weight change Eyes: Denies: eye pain, eye discharge, vision change ENT ED: Denies: ear pain, throat pain, dental pain, hearing loss, epistaxis, congestion, dysphagia Cardiovascular: Denies: chest pain, palpitations, dyspnea on exertion, edema, syncope Respiratory: Reports: cough, dyspnea, sputum production Gastrointestinal: Reports: diarrhea. Denies: abdominal pain, nausea, vomiting, constipation, hematemesis, melena, hematochezia Genitourinary: Denies: urgency, dysuria, frequency, hematuria Musculoskeletal: Denies: back pain, neck pain, arthralgia, myalgia Integumentary: Denies: rash, abrasion, lesions Neurological: Denies: headache, weakness, numbness, paresthesias, confusion, abnormal gait, vertigo Psychiatric: Denies: anxiety, depression, suicidal thoughts, homicidal thoughts , auditory hallucinations, visual hallucinations Endocrine: Denies: fatigue Hematological/Lymphatic: Denies: easy bleeding, easy bruising Allergic/Immunologic: Denies: facial swelling, urticaria Past Medical History - Past Medical History Medical history: Reports: aortic aneurysm, arthritis, asthma, atrial fibrillation, cardiomyopathy, CHF, COPD, coronary artery disease, diabetes, GERD , hyperlipidemia, hypertension, myocardial infarction, peripheral artery disease , renal disease, other Surgical history: Reports: angioplasty/stent, carotid endarterectomy, pacemaker/ AICD, other Psychiatric history: Reports: PTSD - Social History Smoking Status: Former smoker Smokeless Tobacco Status: No Alcohol use: Reports: none Drug use: Reports: none, other Physical Exam - General Limitations: no limitations General appearance: alert, in no apparent distress - Head Head exam: atraumatic, normocephalic, normal inspection - Eye Eye exam: Present: normal appearance, PERRL, EOMI - ENT ENT exam: normal exam, normal oropharynx, mucous membranes moist - Neck Neck exam: Present: normal inspection, full ROM, trachea midline - Chest Chest inspection: Present: normal inspection, symmetric chest wall rise - Respiratory Respiratory exam: Absent: respiratory distress - Expanded Respiratory Exam Location: wheezes: Left, Right, Upper, Lower, decreased breath sounds: Left, Right, Upper, Lower - Cardiovascular Cardiovascular exam: Present: regular rate, normal rhythm, normal heart sounds - Abdominal Exam Abdominal exam: Present: soft, Non-Tender, normal bowel sounds. Absent: tenderness, distention, guarding, rebound, rigidity - Extremities Exam Extremities exam: Present: normal inspection, full ROM. Absent: tenderness, pedal edema - Back Exam Back exam: Present: normal inspection, full ROM. Absent: tenderness - Neurological Exam Neurological exam: Present: alert, oriented X3 - Psychiatric Psychiatric exam: Present: normal affect, normal mood - Skin Skin exam: Present: warm, dry, intact, normal color Course Course Narrative: Patient presents to the ED with worsening of his chronic shortness of breath along with increased cough and sputum production. Given his history of COPD I suspect primarily COPD exacerbation. There is also possibility of pneumonia although he has had no fever or chills. Has extensive cardiac history but no chest pain at this time. Will check EKG and labs as well while treating with duo nebs and steroids. - Reevaluation(s) Reevaluation #1: Patient reports feeling better after 2 DuoNeb's in the ED. Chest x-ray shows cardiomegaly and pulmonary vascular congestion but no pneumonia. Laboratory studies are notable for an elevated white count, elevated troponin at 0.05 and elevated BNP at 1394. Patient has had chronically elevated troponins in the past and this is actually the lowest value on record for him here. I feel that he has experience in both a mild COPD and CHF exacerbation at this time and would benefit from admission for aggressive treatment and additional diuretics. He tells me his Lasix was changed to torsemide, 80 mg on his last admission. Discussed all test results and plan with the patient who is agreeable with admission. Will contact the hospitalist on-call. We will give a dose of antibiotics and diuretic in the ED. Time: 11:11 Reevaluation #2: Spoke to the hospitalist on-call, Dr. López, who has agreed to accept the patient. Time: 11:42 Vital Signs Temperature 97.3 F L 10/25/16 09:25 Pulse Rate 88 10/25/16 09:25 Respiratory Rate 22 10/25/16 09:25 Blood Pressure 140/64 10/25/16 09:25 O2 Sat by Pulse Oximetry 91 L 10/25/16 09:25 Temperature 97.3 F L 10/25/16 09:47 Pulse Rate 74 10/25/16 11:01 Respiratory Rate 25 10/25/16 11:01 Blood Pressure 145/59 10/25/16 11:01 O2 Sat by Pulse Oximetry 94 L 10/25/16 11:01 Oxygen Delivery Oxygen Delivery Nasal Cannula Shortness of Breath/Dyspnea - Differential Diagnosis Likely: acute exacerbation of chronic obstructive airways disease, congestive heart failure, pneumonia. Unlikely: pulmonary embolism - Medical Records Medical records reviewed: Yes I reviewed the patient's medical records. - Lab Data Lab results reviewed: Yes I reviewed the patient's lab results. Result diagrams: 10/25/16 10:27 10/25/16 10:27 Lab Results 10/25/16 10/25/16 10/25/16 Range/Units 10:27 10:27 10:27 WBC 14.7 H (4.3-11.1) K/mcL RBC 3.65 L (4.19-5.50) M/mcL Hgb 10.3 L (12.9-16.9) g/dL Hct 33.2 L (37.5-50.1) % MCV 91.0 (83.0-100.0) fL MCH 28.2 (28.0-33.3) pg MCHC 31.0 L (31.6-35.5) g/dL RDW 15.7 H (11.5-14.5) % Plt Count 355 (140-400) K/mcL MPV 9.3 L (9.4-12.4) fL Immature Gran % 0.6 (0-4) % Seg Neutrophils % 84.9 % Lymphocytes % 8.5 % Monocytes % 5.0 % Eosinophils % 0.5 % Basophils % 0.5 % Neutrophils # 12.5 H (1.6-8.9) K/mcL Lymphocytes # 1.3 (0.6-4.6) K/mcL Monocytes # 0.7 (0.0-1.3) K/mcL Eosinophils # 0.1 (0.0-0.6) K/mcL Basophils # 0.1 (0.0-0.2) K/mcL PT 24.0 H (9.4-12.1) Seconds INR 2.2 Sodium 145 (136-145) mEq/L Potassium 4.2 (3.5-4.5) mEq/L Chloride 101 (98-109) mEq/L Carbon Dioxide 33 H (19-29) mEq/L BUN 15 (8-26) mg/dL Creatinine 1.24 (0.72-1.25) mg/dL Est GFR ( Amer) > 60 (> 60) Est GFR (Non-Af Amer) 58 L (> 60) BUN/Creatinine Ratio 12 (6-26) Glucose 265 H (70-99) mg/dL Calculated Osmolality 310 H (280-300) Calcium 9.5 (8.6-10.8) mg/dL Troponin I (0-0.03) ng/mL B-Natriuretic Peptide (0-100) pg/mL 10/25/16 10/25/16 Range/Units 10:27 10:27 WBC (4.3-11.1) K/mcL RBC (4.19-5.50) M/mcL Hgb (12.9-16.9) g/dL Hct (37.5-50.1) % MCV (83.0-100.0) fL MCH (28.0-33.3) pg MCHC (31.6-35.5) g/dL RDW (11.5-14.5) % Plt Count (140-400) K/mcL MPV (9.4-12.4) fL Immature Gran % (0-4) % Seg Neutrophils % % Lymphocytes % % Monocytes % % Eosinophils % % Basophils % % Neutrophils # (1.6-8.9) K/mcL Lymphocytes # (0.6-4.6) K/mcL Monocytes # (0.0-1.3) K/mcL Eosinophils # (0.0-0.6) K/mcL Basophils # (0.0-0.2) K/mcL PT (9.4-12.1) Seconds INR Sodium (136-145) mEq/L Potassium (3.5-4.5) mEq/L Chloride (98-109) mEq/L Carbon Dioxide (19-29) mEq/L BUN (8-26) mg/dL Creatinine (0.72-1.25) mg/dL Est GFR ( Amer) (> 60) Est GFR (Non-Af Amer) (> 60) BUN/Creatinine Ratio (6-26) Glucose (70-99) mg/dL Calculated Osmolality (280-300) Calcium (8.6-10.8) mg/dL Troponin I 0.05 H* (0-0.03) ng/mL B-Natriuretic Peptide 1394 H (0-100) pg/mL - Radiology Data Radiology results reviewed: Yes I reviewed the patient's radiology results. ITS Impressions Chest X-Ray 10/25/16 09:36 IMPRESSION: 1. Cardiomegaly with vascular congestion. D/ / Lb Joseph MD / Lb Joseph MD Interpreting Provider: Lb Joseph MD - EKG Data EKG attestation: Yes I reviewed and interpreted this EKG. Rate: Reports: normal Rhythm: Reports: other (ventricular paced) Interpretation: Reports: no acute changes, unchanged when compared to prior tracing (date) (09/09/16)
[2016-10-25] MEDS ORDERED: Ipratropium/Albuterol Neb 3 ML IH ONE ×2 (09:35→09:37)
[2016-10-25 10:35] LABS: Basophils # 0.1 K/mcL (0.0-0.2); Basophils % 0.5 %; Eosinophils # 0.1 K/mcL (0.0-0.6); Eosinophils % 0.5 %; Hematocrit 33.2 % (37.5-50.1); Hemoglobin 10.3 g/dL (12.9-16.9); Immature Granulocytes % 0.6 % (0-4); Lymphocytes % 8.5 %; Mean Corpuscular Hemoglobin 28.2 pg (28.0-33.3); Mean Platelet Volume 9.3 fL (9.4-12.4); Monocytes # 0.7 K/mcL (0.0-1.3); Neutrophils # 12.5 K/mcL (1.6-8.9); Platelet Count 355 K/mcL (140-400); Red Blood Count 3.65 M/mcL (4.19-5.50); Red Cell Distribution Width 15.7 % (11.5-14.5); Segmented Neutrophils % 84.9 %
[2016-10-25 10:39] LABS: INR 2.2; Lymphocytes # 1.3 K/mcL (0.6-4.6)
[2016-10-25 10:50] LABS: BUN/Creatinine Ratio 12 (6-26); Blood Urea Nitrogen 15 mg/dL (8-26); Calcium 9.5 mg/dL (8.6-10.8); Carbon Dioxide 33 mEq/L (19-29); Chloride 101 mEq/L (98-109); Glucose 265 mg/dL (70-99); Osmolality,Calculated 310 (280-300); Potassium 4.2 mEq/L (3.5-4.5); Sodium 145 mEq/L (136-145); eGFR For African Americans > 60 (> 60); eGFR For Non-African Americans 58 (> 60)
[2016-10-25] MEDS ORDERED: Furosemide 40 MG/4 ML VIAL IVP ONE (11:13)
[2016-10-25] MEDS ORDERED: Levofloxacin 500 MG/100 ML 500 MG/100 ML BAG IVPB ONE (11:16)
[2016-10-25] MEDS ORDERED: Naloxone 0.4 MG/ML INJ IVP PRN ×2 (11:46→13:04)
[2016-10-25] MEDS ORDERED: Simethicone 80 MG TAB.CHEW PO PRN (13:04)
[2016-10-25] MEDS ORDERED: Nitroglycerin 0.4 MG TAB.SUBL SL PRN (13:04)
--- NOTE | 2016-10-25 15:53 | Internal Med History&Physical ---
Date of Encounter: 10/25/16 Time of Encounter: 15:35 Assessment and Plan (1) Neutrophilic leukocytosis Current visit: Yes Status: Acute Suspect due to exacerbation of COPD from infection. He has been started on IV Levaquin. Further workup will be done as needed. (2) Congestive heart failure Current visit: Yes Status: Acute Continue present regimen. I will restart Lanoxin. Qualifiers: Congestive heart failure type: unspecified congestive heart failure type Congestive heart failure chronicity: acute on chronic Qualified Code(s): I50.9 - Heart failure, unspecified (3) Anemia Current visit: No Status: Chronic Anemia testing done 09/10/2016 showed no factor efficiency. Hemoglobin has improved. Qualifiers: Anemia type: unspecified type Qualified Code(s): D64.9 - Anemia, unspecified (4) Atrial fibrillation Current visit: No Status: Chronic Continue aspirin Qualifiers: Atrial fibrillation type: chronic Qualified Code(s): I48.2 - Chronic atrial fibrillation (5) CKD (chronic kidney disease) stage 3, GFR 30-59 ml/min Current visit: No Status: Chronic Stable. Will monitor renal indices. (6) DM type 2 (diabetes mellitus, type 2) Current visit: No Status: Chronic Hemoglobin A1c was 7.3 on 09/11/2016. Continue present management with Accu- Cheks and SSI. Qualifiers: Diabetes mellitus complication status: with kidney complications Diabetes mellitus complication detail: with chronic kidney disease Diabetes mellitus roasterman insulin use: with roasterman use Chronic kidney disease stage: stage 3 (moderate) Qualified Code(s): E11.22 - Type 2 diabetes mellitus with diabetic chronic kidney disease; N18.3 - Chronic kidney disease, stage 3 ( moderate); Z79.4 - moth exterminator (current) use of insulin Internal Medicine - H&P: HPI Chief complaint: Dyspnea Admitted From: Home Plans for Post Hospital Care: Home History of present illness: Mr. Martin is a 70 year old male who came to emergency room stating he had onset of dyspnea approximate 6 AM while at leisure at home. He took an albuterol nebulizer treatment with minimal relief. His called the squad and he was brought to emergency room. He was evaluated and found to have elevated WBC with left shift on the differential. He was admitted to [facility] floor for ongoing care needs. He was hospitalized last at [facility] August 2016 with similar complaints. His respiratory history is significant for having smoked from age [age] up to 3 packs per day. He has a diagnosis of COPD/emphysema and wears oxygen at home . He has had negative MICHAEL workup. He follows with a porter marina at [place] on a regular basis. He had chest CT July 2016 which did not show acute pathology. Past Med Surg Social Fam HX - Past Medical History Medical history: aortic aneurysm, arthritis, asthma, atrial fibrillation, cardiomyopathy, CHF, COPD, coronary artery disease, diabetes, GERD, hyperlipidemia, hypertension, myocardial infarction, peripheral artery disease, renal disease, other Psychiatric history: PTSD - Past Surgical History Surgical History: angioplasty/stent, carotid endarterectomy, pacemaker/AICD, other - Social History Smoking Status: Former smoker Smokeless Tobacco Status: No Alcohol use: none Drug use: none, other - Family History Father Living Status: Hx Family Cardiac Disorders: Yes Sister Living Status: Internal Medicine - H&P: Meds Albuterol Sulfate [Albuterol Inhaler] 1 - 2 puff IH Q4HR PRN #0 04/12/15 [ History] Aspirin [Lo-Dose Aspirin EC] 81 mg PO DAILY #0 04/12/15 [History] BuPROPion [Wellbutrin] 100 mg PO BID #0 04/12/15 [History] Cholecalciferol (D-3) [Vitamin D] 2,000 unit PO DAILY #0 04/12/15 [History] Lisinopril [Zestril] 10 mg PO DAILY #0 04/12/15 [History] Simethicone [Gas-X] 80 mg PO TID PRN #0 04/12/15 [History] Atorvastatin [Lipitor] 40 mg PO DAILY 06/17/16 [History] Budesonide/Formoterol 160/4.5 [Symbicort 160/4.5] 2 puff IH BID 06/17/16 [ History] Docusate [Colace] 100 mg PO BID 06/17/16 [History] HYDROcodone/Acet 5/325 mg [[place] 5-325 mg] 1 tab PO Q8H PRN 06/17/16 [History] Insulin Glargine,Hum.rec.anlog [Lantus Solostar] 48 unit SQ HS 06/17/16 [History ] Metoprolol XL (24 HR) Succ [Toprol Xl] 25 mg PO DAILY 06/17/16 [History] Potassium Chloride [Klor-Con Sprinkle] 10 meq PO DAILY 06/17/16 [History] Roflumilast [Daliresp] 500 mcg PO DAILY 06/17/16 [History] Tiotropium [Spiriva] 18 mcg IH DAILY 06/17/16 [History] GuaiFENesin ER [Mucinex] 1,200 mg PO BID #14 tab 06/22/16 [Rx] Insulin ASPART [NovoLOG] 22 unit SQ QAM 08/28/16 [History] Albuterol Neb [Proventil Neb] 2.5 mg IH Q4H PRN 365 Days 09/12/16 [Rx] Coumadin 7 10/25/16 [History] Dextrose [Glucose] 16 gm PO QAM PRN 10/25/16 [History] Ferrous Fumarate [Ferrocite] 324 mg PO BID 10/25/16 [History] Furosemide [Lasix] 40 mg PO BID 10/25/16 [History] Isosorbide MONOnitrate (24 HR) [Imdur] 30 mg PO DAILY 10/25/16 [History] Loratadine [Claritin] 10 mg PO QAM 10/25/16 [History] Nitroglycerin [Nitrostat] 0.4 mg SL Q5-6MIN PRN 10/25/16 [History] Omeprazole [PriLOSEC] 20 mg PO DAILY PRN 10/25/16 [History] Allergies flunisolide [From Aerobid] Allergy (Verified 12/05/15 12:41) unkown Penicillins Allergy (Verified 12/05/15 12:41) unkown chlordiazepoxide [From Librium] Adverse Reaction (Verified 12/05/15 12:41) unkown diazepam [From Valium] Adverse Reaction (Verified 12/05/15 12:41) unknown simvastatin Adverse Reaction (Verified 12/05/15 12:41) unkown All Systems PM: A 10-system review of systems was performed and is negative for pertinent findings except as documented above in the HPI. Review of systems: Review of systems from the August 2016 [facility] hospitalization were reviewed and revised as below. Gen.: His weight has decreased from 89.414 kg at April 2016 discharge to 80.739 kg on admission today Cardiovascular: He has history of hypertension and chronic atrial fibrillation. He has heart failure with LVEF 25% on echocardiogram December 2014. He had ICD pacemaker placed on 3 occasions, most recently in 2011. He claims he had MIs in 2003 and April 2015. He had 3 stents placed in April 2015 at [facility] which was his most recent heart cath. He denies DVT or pulmonary emboli. Respiratory: As per history of present illness GI: He has GERD. He has had EGD and colonoscopy in the past 2 years which were unremarkable. Denies disorders of his liver or exocrine pancreas. : He has CKD stage III. He does not follow with a photo manager but states he is scheduled to see one. He also reports he has been referred to a urologist. He denies other kidney or bladder disorders. Neurologic: He denies large distribution strokes or seizures. Endocrine: He was diagnosed with DM 2 approximately 1994. He has hyperlipidemia but denies thyroid disease Hematology/oncology: He had anemia with folate and iron deficiency documented in the past. He denies internal malignancies. Psychiatric: He has PTSD. He denies other mental health issues Musk skeletal: He has DJD but no known gout or osteoporosis. - Constitutional Vitals: Temp Pulse Resp BP Pulse Ox 97.9 F 70 18 131/58 96 10/25/16 13:05 10/25/16 13:05 10/25/16 13:05 10/25/16 13:05 10/25/16 13:05 Exam: Gen.: He is a well-developed well-nourished male lying in bed who appears in no significant distress at present time. HEENT: Head is atraumatic and normocephalic. Eyes: EOMI. There is no scleral icterus. Mouth: Mucosa is moist. Neck: Supple and nontender. There is no thyromegaly or adenopathy noted. Heart: Regular without murmurs gallops or ectopics. Lungs: No wheezes or crackles are heard. Abdomen: Soft and nontender. No masses or guarding are noted. Extremities: There is no cyanosis edema or clubbing noted. Dorsalis pedis and posttibial pulses are 1-2 over 2 bilaterally. Neurologic: Mental status: He is talkative and a good historian. Cranial nerves : Smile is symmetric. Forehead wrinkles bilaterally. Tongue protrudes midline. EOMI. Motor: There is no pronator drift. Cerebellar: Finger to nose is intact bilaterally. Skin: Warm and dry Internal Med - H&P Results - Labs CBC & Chem 7: 10/25/16 10:27 10/25/16 10:27 - VTE Reasons for not Prescribing Prophylaxis: Not indicated-Anticoagulated or INR therapeutic
[2016-10-25] MEDS: *HR* Digoxin 0.25 MG TABLET PO SCH (17:14)
[2016-10-25] MEDS: Albuterol 2.5 MG/3 ML NEBULIZER IH PRN (18:33)
[2016-10-25] MEDS ORDERED: D5% in Water 1,000 ML IV PRN (18:34)
[2016-10-25] MEDS ORDERED: Dextrose Gel 15 GM PO PRN ×2 (18:34)
[2016-10-25] MEDS ORDERED: *HR* Dextrose 50 % in Water (Syg) 50 ML SYRINGE IVP PRN (18:34)
[2016-10-25] MEDS: Insulin LISPRO 300 UNITS/3 ML VIAL SQ SCH ×2 (19:15→19:59)
[2016-10-25] MEDS: Insulin DETEMIR 100 UNIT/ML X5UNITS SQ SCH (20:00)
[2016-10-25] MEDS: Budesonide/Formoterol 160/4.5 MDI IH SCH (20:38)
[2016-10-26] MEDS: Albuterol 2.5 MG/3 ML NEBULIZER IH PRN ×4 (00:08→21:16)
[2016-10-26 05:21] LABS: Basophils % 0.1 %; Hematocrit 31.7 % (37.5-50.1); Immature Granulocytes % 0.2 % (0-4); Mean Corpuscular HGB Conc 31.5 g/dL (31.6-35.5); Mean Corpuscular Hemoglobin 27.9 pg (28.0-33.3); Mean Corpuscular Volume 88.5 fL (83.0-100.0); Mean Platelet Volume 9.1 fL (9.4-12.4); Monocytes # 0.7 K/mcL (0.0-1.3); Monocytes % 8.7 %; Neutrophils # 6.4 K/mcL (1.6-8.9); Platelet Count 327 K/mcL (140-400); Red Blood Count 3.58 M/mcL (4.19-5.50); Red Cell Distribution Width 15.4 % (11.5-14.5)
[2016-10-26 05:47] LABS: BUN/Creatinine Ratio 18 (6-26); Blood Urea Nitrogen 22 mg/dL (8-26); Calcium 9.7 mg/dL (8.6-10.8); Carbon Dioxide 32 mEq/L (19-29); Chloride 97 mEq/L (98-109); Glucose 231 mg/dL (70-99); Osmolality,Calculated 305 (280-300); Potassium 3.9 mEq/L (3.5-4.5); Sodium 142 mEq/L (136-145); eGFR For African Americans > 60 (> 60); eGFR For Non-African Americans 59 (> 60)
[2016-10-26] MEDS: Insulin LISPRO 300 UNITS/3 ML VIAL SQ SCH ×5 (07:44→22:31)
[2016-10-26] MEDS: *HR* Digoxin 0.25 MG TABLET PO SCH (07:58)
[2016-10-26] MEDS: Aspirin Enteric Coated 81 MG Tablet PO SCH (08:00)
[2016-10-26] MEDS: Metoprolol XL (24 HR) Succ 25 MG TAB.ER.24H PO SCH (08:02)
[2016-10-26] MEDS: Cholecalciferol (D-3) 1,000 UNIT TABLET PO SCH (08:02)
[2016-10-26] MEDS: *HR* HYDROcodone/Acet 5/325 mg TABLET PO PRN ×2 (08:56→18:42)
[2016-10-26] MEDS ORDERED: DALIRESP 500MCG PO SCH (09:00)
[2016-10-26] MEDS ORDERED: Loratadine 10 MG TABLET PO SCH (09:00)
[2016-10-26] MEDS ORDERED: Isosorbide MONOnitrate (24 HR) 30 MG TAB.ER.24H PO SCH ×2 (09:00→10:21)
[2016-10-26] MEDS: Budesonide/Formoterol 160/4.5 MDI IH SCH ×2 (10:02→21:16)
[2016-10-26] MEDS: Tiotropium 18 MCG inhalation IH SCH (10:13)
--- NOTE | 2016-10-26 10:15 | Internal Med Progress Note ---
Date of Encounter: 10/26/16 Time of Encounter: 09:55 - Assessment and plan (1) Neutrophilic leukocytosis Current Visit: Yes Status: Acute Assessment and plan: October 26. WBC is normal and left shift improved. Continue present regimen. (2) Congestive heart failure Current Visit: Yes Status: Acute Assessment and plan: October 26. Bn peptide is minimally changed at 1520. Continue lisinopril, Imdur, Lanoxin and Bumex Qualifiers: Congestive heart failure type: unspecified congestive heart failure type Congestive heart failure chronicity: acute on chronic Qualified Code(s): I50.9 - Heart failure, unspecified (3) Anemia Current Visit: No Status: Chronic Assessment and plan: October 26. Anemia testing done 09/10/2016 showed no factor deficiency. Continue to monitor CBC as needed. Qualifiers: Anemia type: unspecified type Qualified Code(s): D64.9 - Anemia, unspecified (4) Atrial fibrillation Current Visit: No Status: Chronic Assessment and plan: October 26. Continue aspirin Qualifiers: Atrial fibrillation type: chronic Qualified Code(s): I48.2 - Chronic atrial fibrillation (5) CKD (chronic kidney disease) stage 3, GFR 30-59 ml/min Current Visit: No Status: Chronic Assessment and plan: October 26. Stable. Continue to monitor renal indices. (6) DM type 2 (diabetes mellitus, type 2) Current Visit: No Status: Chronic Assessment and plan: October 26. Hemoglobin A1c was 7.3% on 09/11/2016. Continue Levemir and Accu- Cheks with SSI Qualifiers: Diabetes mellitus complication status: with kidney complications Diabetes mellitus complication detail: with chronic kidney disease Diabetes mellitus retirement insulin use: with retirement use Chronic kidney disease stage: stage 3 (moderate) Qualified Code(s): E11.22 - Type 2 diabetes mellitus with diabetic chronic kidney disease; N18.3 - Chronic kidney disease, stage 3 ( moderate); Z79.4 - termite control servicer (current) use of insulin - Subjective Interval history: October 26. He has no new complaints and feels slightly better. - Constitutional Vitals: Temp Pulse Resp BP Pulse Ox 98.3 F 77 18 134/64 100 10/26/16 08:00 10/26/16 08:00 10/26/16 08:00 10/26/16 08:00 10/26/16 09:05 Exam: He is sitting on the side of the bed resting comfortably. His lungs show mild prolonged expiratory phase but no inspiratory crackles are heard. Heart is regular without murmurs gallops or ectopics. Extremities show no edema. I reviewed his medications and lab results. Internal Medicine: Result - Labs CBC & Chem 7: 10/26/16 05:10 10/26/16 05:10 Labs: Short CBC 10/26/16 Range/Units 05:10 WBC 8.1 (4.3-11.1) K/mcL Hgb 10.0 L (12.9-16.9) g/dL Hct 31.7 L (37.5-50.1) % Plt Count 327 (140-400) K/mcL Neutrophils # 6.4 (1.6-8.9) K/mcL BMP 10/26/16 05:10 Sodium 142 Potassium 3.9 Chloride 97 L Carbon Dioxide 32 H BUN 22 Creatinine 1.22 Glucose 231 H Calcium 9.7 - ABG Interpretation ABG results: PT/INR, D-dimer PT 24.0 Seconds (9.4-12.1) H 10/25/16 10:27 - VTE Reasons for not Prescribing Prophylaxis: Not indicated-Anticoagulated or INR therapeutic Consult Discharge Plan - Plan [facility]errals: [facility]Primary Care Provider[facility] - 1 week
[2016-10-26] MEDS ORDERED: Loratadine 10 MG TABLET PO PRN (10:22)
[2016-10-26] MEDS: Bumetanide 1 MG TABLET PO SCH (12:19)
[2016-10-26] MEDS: Levofloxacin 500 MG/100 ML 500 MG/100 ML BAG IVPB SCH (12:25)
[2016-10-26] MEDS: Insulin DETEMIR 100 UNIT/ML X5UNITS SQ SCH (22:30)
[2016-10-26] MEDS ORDERED: *HR* Warfarin 7.5 MG TABLET PO SCH (23:24)
[2016-10-27] MEDS ORDERED: *HR* Warfarin 5 MG TABLET PO SCH ×2 (01:30→18:00)
[2016-10-27 05:29] LABS: Basophils # 0.1 K/mcL (0.0-0.2); Basophils % 0.8 %; Eosinophils # 0.1 K/mcL (0.0-0.6); Eosinophils % 1.3 %; Hematocrit 32.4 % (37.5-50.1); Immature Granulocytes % 0.3 % (0-4); Lymphocytes # 1.8 K/mcL (0.6-4.6); Lymphocytes % 23.6 %; Mean Corpuscular HGB Conc 30.9 g/dL (31.6-35.5); Mean Corpuscular Hemoglobin 27.9 pg (28.0-33.3); Mean Corpuscular Volume 90.5 fL (83.0-100.0); Mean Platelet Volume 9.5 fL (9.4-12.4); Monocytes # 0.7 K/mcL (0.0-1.3); Monocytes % 8.9 %; Neutrophils # 4.9 K/mcL (1.6-8.9); Platelet Count 323 K/mcL (140-400); Red Blood Count 3.58 M/mcL (4.19-5.50); Red Cell Distribution Width 15.6 % (11.5-14.5); Segmented Neutrophils % 65.1 %
[2016-10-27 05:49] LABS: BUN/Creatinine Ratio 24 (6-26); Blood Urea Nitrogen 26 mg/dL (8-26); Calcium 9.3 mg/dL (8.6-10.8); Carbon Dioxide 33 mEq/L (19-29); Chloride 99 mEq/L (98-109); Glucose 107 mg/dL (70-99); Osmolality,Calculated 301 (280-300); Potassium 3.9 mEq/L (3.5-4.5); Sodium 143 mEq/L (136-145); eGFR For African Americans > 60 (> 60); eGFR For Non-African Americans > 60 (> 60)
[2016-10-27] MEDS: Albuterol 2.5 MG/3 ML NEBULIZER IH PRN ×4 (05:52→23:00)
[2016-10-27] MEDS: Insulin LISPRO 300 UNITS/3 ML VIAL SQ SCH ×5 (09:22→21:37)
--- NOTE | 2016-10-27 09:26 | Internal Med Progress Note ---
Date of Encounter: 10/27/16 Time of Encounter: 09:20 - Assessment and plan (1) Neutrophilic leukocytosis Current Visit: Yes Status: Acute Assessment and plan: October 26. WBC is normal and left shift improved. Continue present regimen. October 27. WBC remains normal with resolution of left shift. Continue Levaquin (2) Congestive heart failure Current Visit: Yes Status: Acute Assessment and plan: October 26. Bn peptide is minimally changed at 1520. Continue lisinopril, Imdur, Lanoxin and Bumex October 27. Bn peptide is significantly improved at 474. Continue present regimen. Anticipate discharge home tomorrow Qualifiers: Congestive heart failure type: unspecified congestive heart failure type Congestive heart failure chronicity: acute on chronic Qualified Code(s): I50.9 - Heart failure, unspecified (3) Anemia Current Visit: No Status: Chronic Assessment and plan: October 26. Anemia testing done 09/10/2016 showed no factor deficiency. Continue to monitor CBC as needed. Qualifiers: Anemia type: unspecified type Qualified Code(s): D64.9 - Anemia, unspecified (4) Atrial fibrillation Current Visit: No Status: Chronic Assessment and plan: October 26. Continue aspirin Qualifiers: Atrial fibrillation type: chronic Qualified Code(s): I48.2 - Chronic atrial fibrillation (5) CKD (chronic kidney disease) stage 3, GFR 30-59 ml/min Current Visit: No Status: Chronic Assessment and plan: October 26. Stable. Continue to monitor renal indices. October 27. Creatinine is decreased to 1.08 with estimated GFR greater than 60. Continue present regimen (6) DM type 2 (diabetes mellitus, type 2) Current Visit: No Status: Chronic Qualifiers: Diabetes mellitus complication status: with kidney complications Diabetes mellitus complication detail: with chronic kidney disease Diabetes mellitus [facility] insulin use: with [facility] use Chronic kidney disease stage: stage 3 (moderate) Qualified Code(s): E11.22 - Type 2 diabetes mellitus with diabetic chronic kidney disease; N18.3 - Chronic kidney disease, stage 3 ( moderate); Z79.4 - terminal operator (current) use of insulin - Subjective Interval history: October 26. He has no new complaints and feels slightly better. October 27. He has no complaints and feels better - Constitutional Vitals: Temp Pulse Resp BP Pulse Ox 98.0 F 78 18 134/61 100 10/27/16 06:27 10/27/16 06:27 10/27/16 06:27 10/27/16 06:27 10/27/16 06:27 Exam: Heart is regular without murmurs gallops or ectopics. Lungs show mild expiratory wheezing. I reviewed his medications and lab results. Internal Medicine: Result - Labs CBC & Chem 7: 10/27/16 04:33 10/27/16 04:33 Labs: Short CBC 10/27/16 Range/Units 04:33 WBC 7.5 (4.3-11.1) K/mcL Hgb 10.0 L (12.9-16.9) g/dL Hct 32.4 L (37.5-50.1) % Plt Count 323 (140-400) K/mcL Neutrophils # 4.9 (1.6-8.9) K/mcL BMP 10/27/16 04:33 Sodium 143 Potassium 3.9 Chloride 99 Carbon Dioxide 33 H BUN 26 Creatinine 1.08 Glucose 107 H Calcium 9.3 - ABG Interpretation ABG results: PT/INR, D-dimer PT 24.0 Seconds (9.4-12.1) H 10/25/16 10:27 - VTE Reasons for not Prescribing Prophylaxis: Not indicated-Anticoagulated or INR therapeutic Consult Discharge Plan - Plan [facility] Provider[facility] - 1 week
[2016-10-27] MEDS: Bumetanide 1 MG TABLET PO SCH (09:34)
[2016-10-27] MEDS: Tiotropium 18 MCG inhalation IH SCH (09:36)
[2016-10-27] MEDS: Isosorbide MONOnitrate (24 HR) 30 MG TAB.ER.24H PO SCH (09:37)
[2016-10-27] MEDS: Budesonide/Formoterol 160/4.5 MDI IH SCH ×2 (09:37→23:00)
[2016-10-27] MEDS: Aspirin Enteric Coated 81 MG Tablet PO SCH (09:38)
[2016-10-27] MEDS: Cholecalciferol (D-3) 1,000 UNIT TABLET PO SCH (09:38)
[2016-10-27] MEDS: *HR* Digoxin 0.25 MG TABLET PO SCH (09:38)
[2016-10-27] MEDS: DALIRESP 500 MCG PO SCH (09:39)
[2016-10-27] MEDS: Metoprolol XL (24 HR) Succ 25 MG TAB.ER.24H PO SCH (09:39)
[2016-10-27] MEDS: *HR* HYDROcodone/Acet 5/325 mg TABLET PO PRN (09:49)
[2016-10-27] MEDS: Levofloxacin 500 MG/100 ML 500 MG/100 ML BAG IVPB SCH (13:07)
[2016-10-27] MEDS: Insulin DETEMIR 100 UNIT/ML X5UNITS SQ SCH (21:37)
[2016-10-28] MEDS: Albuterol 2.5 MG/3 ML NEBULIZER IH PRN ×2 (05:26→09:28)
[2016-10-28] MEDS: Insulin LISPRO 300 UNITS/3 ML VIAL SQ SCH ×3 (07:47→11:50)
[2016-10-28] MEDS: Bumetanide 1 MG TABLET PO SCH (08:23)
[2016-10-28] MEDS: Metoprolol XL (24 HR) Succ 25 MG TAB.ER.24H PO SCH (08:24)
[2016-10-28] MEDS: Aspirin Enteric Coated 81 MG Tablet PO SCH (08:24)
[2016-10-28] MEDS: Cholecalciferol (D-3) 1,000 UNIT TABLET PO SCH (08:24)
[2016-10-28] MEDS: *HR* Digoxin 0.25 MG TABLET PO SCH (08:24)
[2016-10-28] MEDS: Isosorbide MONOnitrate (24 HR) 30 MG TAB.ER.24H PO SCH (08:25)
[2016-10-28] MEDS: DALIRESP 500 MCG PO SCH (08:26)
[2016-10-28] MEDS: Tiotropium 18 MCG inhalation IH SCH (09:28)
[2016-10-28] MEDS: Budesonide/Formoterol 160/4.5 MDI IH SCH (09:35)
--- NOTE | 2016-10-28 11:00 | Discharge Summary ---
Date of Encounter: 10/28/16 Time of Encounter: 10:45 - Discharge Diagnosis (1) Neutrophilic leukocytosis Priority: Primary Status: Resolved (2) Congestive heart failure Priority: Secondary Status: Chronic Qualifiers: Congestive heart failure type: unspecified congestive heart failure type Congestive heart failure chronicity: acute on chronic Qualified Code(s): I50.9 - Heart failure, unspecified (3) Anemia Priority: Secondary Status: Chronic Qualifiers: Anemia type: unspecified type Qualified Code(s): D64.9 - Anemia, unspecified (4) Atrial fibrillation Priority: Secondary Status: Chronic Qualifiers: Atrial fibrillation type: chronic Qualified Code(s): I48.2 - Chronic atrial fibrillation (5) CKD (chronic kidney disease) stage 3, GFR 30-59 ml/min Priority: Secondary Status: Chronic (6) DM type 2 (diabetes mellitus, type 2) Priority: Secondary Status: Chronic Qualifiers: Diabetes mellitus complication status: with kidney complications Diabetes mellitus complication detail: with chronic kidney disease Diabetes mellitus snf insulin use: with superintendent terminal use Chronic kidney disease stage: stage 3 (moderate) Qualified Code(s): E11.22 - Type 2 diabetes mellitus with diabetic chronic kidney disease; N18.3 - Chronic kidney disease, stage 3 ( moderate); Z79.4 - [facility] (current) use of insulin - Discharge Medications Prescriptions: Bumetanide [Bumex] 1 mg PO DAILY #30 tablet Digoxin [Lanoxin] 0.25 mg PO DAILY #30 tablet Home Medications: Albuterol Sulfate [Albuterol Inhaler] 1 - 2 puff IH Q4HR PRN #0 04/12/15 [ History] Aspirin [Lo-Dose Aspirin EC] 81 mg PO DAILY #0 04/12/15 [History] BuPROPion [Wellbutrin] 100 mg PO BID #0 04/12/15 [History] Cholecalciferol (D-3) [Vitamin D] 2,000 unit PO DAILY #0 04/12/15 [History] Lisinopril [Zestril] 10 mg PO DAILY #0 04/12/15 [History] Simethicone [Gas-X] 80 mg PO TID PRN #0 04/12/15 [History] Atorvastatin [Lipitor] 40 mg PO DAILY 06/17/16 [History] Budesonide/Formoterol 160/4.5 [Symbicort 160/4.5] 2 puff IH BID 06/17/16 [ History] Docusate [Colace] 100 mg PO BID 06/17/16 [History] HYDROcodone/Acet 5/325 mg [[place] 5-325 mg] 1 tab PO Q8H PRN 06/17/16 [History] Insulin Glargine,Hum.rec.anlog [Lantus Solostar] 48 unit SQ HS 06/17/16 [History ] Metoprolol XL (24 HR) Succ [Toprol Xl] 25 mg PO DAILY 06/17/16 [History] Potassium Chloride [Klor-Con Sprinkle] 10 meq PO DAILY 06/17/16 [History] Roflumilast [Daliresp] 500 mcg PO DAILY 06/17/16 [History] Tiotropium [Spiriva] 18 mcg IH DAILY 06/17/16 [History] GuaiFENesin ER [Mucinex] 1,200 mg PO BID #14 tab 06/22/16 [Rx] Insulin ASPART [NovoLOG] 22 unit SQ QAM 08/28/16 [History] Albuterol Neb [Proventil Neb] 2.5 mg IH Q4H PRN 365 Days 09/12/16 [Rx] Coumadin 7 10/25/16 [History] Dextrose [Glucose] 16 gm PO QAM PRN 10/25/16 [History] Ferrous Fumarate [Ferrocite] 324 mg PO BID 10/25/16 [History] Nitroglycerin [Nitrostat] 0.4 mg SL Q5-6MIN PRN 10/25/16 [History] Omeprazole [PriLOSEC] 20 mg PO DAILY PRN 10/25/16 [History] Bumetanide [Bumex] 1 mg PO DAILY #30 tablet 10/28/16 [Rx] Digoxin [Lanoxin] 0.25 mg PO DAILY #30 tablet 10/28/16 [Rx] Isosorbide MONOnitrate (24 HR) [Imdur] 120 mg PO DAILY 365 Days 10/28/16 [Rx] Loratadine [Claritin] 10 mg PO QAM PRN 365 Days 10/28/16 [Rx] Allergies/Adverse Reactions: Allergies flunisolide [From Aerobid] Allergy (Verified 12/05/15 12:41) unkown Penicillins Allergy (Verified 12/05/15 12:41) unkown chlordiazepoxide [From Librium] Adverse Reaction (Verified 12/05/15 12:41) unkown diazepam [From Valium] Adverse Reaction (Verified 12/05/15 12:41) unknown simvastatin Adverse Reaction (Verified 12/05/15 12:41) unkown Date of admission: 10/25/16 11:37 [facility] - Patient Status Disposition: Home, Self-Care Condition: Fair Overall status at discharge: patient is progressing back to baseline - Discharge Instructions [facility] With: [facility] Care Provider[facility] - 1 week - Diet and Activity Activity: resume usual activities as tolerated, wear oxygen at all times Diet: advance to your usual diet Hospital course: Mr. Martin is a 70 year old male who came to emergency room stating he had onset of dyspnea approximate 6 AM while at leisure at home. He took an albuterol nebulizer treatment with minimal relief. His called the squad and he was brought to emergency room. He was evaluated and found to have elevated WBC with left shift on the differential. He was admitted to [facility] floor for ongoing care needs. Initial orders were written by emergency room physician. I saw him on October 25 and performed a history and physical. He was started on IV Levaquin. WBC normalized to 7.5 with resolution of the left shift by the day of discharge. He remained afebrile during his hospital stay. He will not receive further antibiotics at discharge. He was started on Lanoxin, Bumex, and maintained on Toprol, lisinopril, and Imdur 120 mg daily. His BN peptide improved to 474 on the day prior to discharge. Creatinine decreased to 1.08 with estimated GFR greater than 60. On October 28 he felt stable for discharge home which I felt was reasonable. He will follow with his PCP at [facility] within one week. - Time Spent with Patient Total time spent providing and/or coordinating discharge services: - Constitutional Vitals: Temp Pulse Resp BP Pulse Ox 98.7 F 81 15 123/66 98 10/28/16 07:21 10/28/16 07:21 10/28/16 09:31 10/28/16 07:21 10/28/16 09:31 - VTE Reasons for not Prescribing Prophylaxis: Not indicated-Anticoagulated or INR therapeutic
[2016-10-28] MEDS: Levofloxacin 500 MG/100 ML 500 MG/100 ML BAG IVPB SCH (11:52)
[2016-10-28 12:22] VITALS: BP 106/51
[2016-10-29] MEDS ORDERED: Warfarin 4 MG, Warfarin 3 MG PO SCH (18:00)
== END 2016-10-28 12:47 | disposition home or self-care (01) ==
LOC: EMEROOPIK 09:24 → INPPIK 09:24
PROVIDERS: ADMIT Internal Medicine; ATTEND Internal Medicine